=== PATIENT | male | born 1935 | race Caucasian/White ===

== ENCOUNTER → 2016-09-20 | Outpatient (CLI) | payer MEDICARE, BC | LOC: LABWHC1 13:41 | PROVIDERS: ATTEND Otolaryngology | DX: D44.0 Neoplasm of uncertain behavior of thyroid gland (principal); E04.1 Nontoxic single thyroid nodule | CPT/HCPCS: 36415; 84439; 84443 ==

== ENCOUNTER → 2017-03-16 | Outpatient (CLI) | payer MEDICARE, BC ==
--- NOTE | 2017-03-16 17:16 | US ---
EXAMINATION TYPE: US thyroid st tissue head/neck DATE OF EXAM: 03/16/2017 COMPARISON: NONE CLINICAL HISTORY: E04.1 Thyroid nodule. Patient stated had prior US at [facility]; marty or FNA x multiple nodules bilaterally. GLAND SIZE: Right Lobe: 5.7 x 2.7 x 2.7 cm Overall Parenchyma: heterogenous Left Lobe: 5.8 x 3.0 x 2.5 cm Overall Parenchyma: heterogeneous Isthmus Thickness: 0.3 cm NODULES RIGHT: # of nodules measured on right: 2 discreet nodules of multiple 1. 3.1 X 2.0 x 1.4 cm hypoechoic mixed nodule at the mid lateral pole with well-defined margins. T his nodule is wider than tall and shows intranodular vascularity. Prior size: no prior US here 2. 0.4 X 0.3 x 0.3 cm echogenic calcified nodule at the lower pole with poorly defined margins; inte rrupted peripheral calcification. This nodule is wide as is tall and shows no intranodular vasculari ty. LEFT: # of nodules measured on left: 2 discreet nodules of multiple 1. 0.7 X 0.5 x 0.5 cm hypoechoic cystic nodule at the upper pole with well-defined margins; present with microcalcification. This nodule is wide as is tall and shows no intranodular vascularity. 2. 3.0 x X 1.8 x 2.2 cm isoechoic solid nodule at the lower pole with well-defined margins. This n odule is taller than wide and shows intranodular vascularity. ( inferior border left thyroid was limitedly seen due to probe at clavicle) ISTHMUS: # of nodules measured in the isthmus: 0 Bilateral neck scanned, no evidence of lymphadenopathy. IMPRESSION: There is bilateral significant thyroid gland enlargement with multiple sonographic abnormalities. Thi s most likely relates to multinodular goiter. Comparison with an old exam would be helpful. There is no single dominant mass. I have a lower suspicion of malignancy since there are multiple findings and I think this could be followed conservatively with a repeat ultrasound in 6 months or one year.
== END | disposition home or self-care (01) ==
LOC: RADUSWWP 16:05
PROVIDERS: ATTEND Otolaryngology
DX: E04.9 Nontoxic goiter, unspecified (principal)
CPT/HCPCS: 76536

== ENCOUNTER → 2017-07-13 | Outpatient (CLI) | payer MEDICARE, BC ==
--- NOTE | 2017-07-13 19:55 | MR ---
EXAMINATION TYPE: MR lumbar spine wo/w con DATE OF EXAM: 07/13/2017 COMPARISON: 10/19/2016 HISTORY: LBP, lt sciatica, hx surgery 12 years ago TECHNIQUE: Multiplanar, multisequence images of the lumbar spine were acquired utilizing [address] gadolinium contrast. Again on localizer images there is enlargement of the prostate gland. Vertebral body heights are norm al alignment and vertebral body height. Heterogenous bone marrow signal is again seen diffusely. No s uspicious postcontrast enhancement is present. Multilevel intervertebral disc desiccation is noted. L1-L2: There is a broad-based disc bulge, facet arthropathy and ligamentum flavum buckling creating m oderate spinal canal stenosis and mild to moderate right neural foraminal narrowing and mild left geoff ral foraminal narrowing. This is similar to the prior. L2-L3: There is moderate spinal canal stenosis created by large left eccentric broad-based disc bulge , facet arthropathy and ligamentum flavum hypertrophy. This results in moderate left and mild right n eural foraminal narrowing. Findings are unchanged from the prior. L3-L4: There is a broad-based disc bulge, facet arthropathy, and ligamentum flavum buckling create mi ld spinal canal stenosis and moderate bilateral neural foraminal narrowing. Again findings are unchan ged from the prior. L4-L5: There is a focal annular tear of the central disc with a broad-based disc bulge. Bilateral ashley inectomy defects are seen at this level and spinous process resection. Scar enhancement is seen poste riorly although there is no epidural fibrosis as this appears to be external to the epidural space. A broad-based disc bulge creates moderate bilateral neural foraminal narrowing. No spinal canal stenos is. L5-S1: Broad-based disc bulge is seen in combination with facet arthropathy and ligamentum flavum buc edy creating mild bilateral neural neural foraminal narrowing, slightly increased from the prior. N o spinal canal stenosis. Again multiple T2 hyperintense and T1 hypointense rounded left renal lesions are seen the largest in the upper pole measuring up to 2.5 cm. These may represent renal cysts. Further evaluation with renal ultrasound could be performed. IMPRESSION: 1. Similar multilevel degenerative changes in comparison to the prior of 10/19/2016. There is only slig ht progression at L5-S1 with mild bilateral neural foraminal narrowing. Otherwise there is stability of the multilevel variable degrees neural foraminal stenosis as described above and mild spinal canal stenosis at L3-L4 and moderate spinal canal stenosis at L1-L3. 2. Multiple T2 hyperintense renal lesions may represent renal cysts and confirmation with renal ultra sound is recommended. 3. Minimally enhancing scar tissue at the laminectomy defect at L4-L5 without significant epidural fi brosis.
== END | disposition home or self-care (01) ==
LOC: RADMRIMAIN 14:25
PROVIDERS: ATTEND Family Medicine
DX: M48.061 Spinal stenosis, lumbar region without neurogenic claudication (principal); M99.73 Connective tissue and disc stenosis of intervertebral foramina of lumbar region; M47.27 Other spondylosis with radiculopathy, lumbosacral region; Z98.890 Other specified postprocedural states
CPT/HCPCS: 72158; A9581

== ENCOUNTER → 2017-09-27 | Outpatient (CLI) | payer MEDICARE, BC ==
--- NOTE | 2017-09-27 14:44 | US ---
EXAMINATION TYPE: US thyroid st tissue head/neck DATE OF EXAM: 09/27/2017 COMPARISON: 2017 CLINICAL HISTORY: E04.1 thyroid nodule. GLAND SIZE: Right Lobe: 5.2 x 2.7 x 2.6 cm Overall Parenchyma: heterogenous Left Lobe: 4.9 x 2.7 x 2.7 cm Overall Parenchyma: heterogeneous Isthmus Thickness: 0.3 cm NODULES RIGHT: # of nodules measured on right: 1. 3.0 X 1.8 x 2.3 cm mixed nodule at the mid pole with well-defined margins; . This nodule is wid er than tall and shows intranodular vascularity. Prior size: 3.1 x 2.0 x 1.4 cm 2. 1.2 X 0.7 x 0.6 cm mixed nodule at the lower pole with poorly defined margins; present with micro calcifications. This nodule is wide as tall and shows no intranodular vascularity. Prior size: 0.4 x 0.3 x 0.3 cm LEFT: # of nodules measured on left: 2 1. 1.2 X 0.7 x 0.7 cm mixed nodule at the upper pole with well-defined margins; present with microc alcifications. This nodule is round and shows no intranodular vascularity. Prior size: 0.7 x 0.5 x 0.5 cm 2. 2.6 X 2.3 x 2.1 cm mixed nodule at the lower pole with well-defined margins; . This nodule is wi josephine than tall and shows intranodular vascularity. Prior size: 3.0 x 1.8 x 2.2 cm ISTHMUS: # of nodules measured in the isthmus: 0 Bilateral neck scanned, no evidence of lymphadenopathy. IMPRESSION: 1. Enlarging left lobe thyroid nodule upper pole left lobe thyroid. 2. Enlarging right lobe thyroid nodule lower pole right lobe thyroid
== END | disposition home or self-care (01) ==
LOC: RADUSWWP 13:27
PROVIDERS: ATTEND Otolaryngology
DX: E04.2 Nontoxic multinodular goiter (principal)
CPT/HCPCS: 76536

== ENCOUNTER 2018-06-27 09:07 | Inpatient (IN) | payer MEDICARE, BC ==
[~2018-06-27 09:07] MED LIST: ACETAMINOPHEN TAB 500 MG TAB PO ONE; CLINDAMYCIN 900 MG in DEXTROSE 5% IN WATER 50 ML IVPB ONE; DEXAMETHASONE SOD PHOSPHATE 10 MG/ML 1 ML VIAL IV ONE; HYDROmorphone 1 MG/ML 1 ML SYRINGE IVP PRN; LIDOCAINE 1% 20 ML VIAL (10MG/ML) FOR IV START INTRADERMA PRN; MELOXICAM 7.5 MG TAB PO ONE; MIDAZOLAM 2 MG/2 ML VIAL IV PRN; ONDANSETRON 4 MG/2 ML VIAL IVP ONE; SCOPOLAMINE 1.5MG/72HR PATCH TRANSDERM ONE; TRANEXAMIC ACID 1,000 MG in SODIUM CHLORIDE 0.9% 50 ML IVPB ONE
[2018-06-27] MEDS ORDERED: ROPIVACAINE 246.25 MG, EPINEPHrine 0.5 MG, KETOROLAC 30 MG, cloNIDine HCL/PF 80 MCG, WA... MISCELLANE ONE ×5 (09:23)
[2018-06-27] MEDS ORDERED: VANCOMYCIN IV PER PHARMACY 1 EACH MISC MISCELLANE PRN (09:24)
[2018-06-27] MEDS ORDERED: VANCOMYCIN 1,250 MG in SODIUM CHLORIDE 0.9% 250 ML IVPB ONE (09:45)
[2018-06-27] MEDS: LACTATED RINGERS 1,000 ML IV SCH ×2 (10:09→14:43)
[2018-06-27] MEDS ORDERED: NALOXONE 0.4 MG/ML 1 ML VIAL IV PRN ×2 (11:29→14:43)
[2018-06-27] MEDS ORDERED: ACETAMINOPHEN TAB 325 MG TAB PO PRN (11:29)
[2018-06-27] MEDS ORDERED: SODIUM CHLORIDE 0.9% IVPB ONE (11:29)
[2018-06-27] MEDS ORDERED: traMADol 50 MG TAB PO PRN (11:29)
[2018-06-27] MEDS ORDERED: NA PHOS,M-B/NA PHOS,DI-BA 133 ML ENEMA RECTAL PRN (11:29)
[2018-06-27] MEDS ORDERED: VANCOMYCIN IVPB ONE (11:29)
[2018-06-27] MEDS ORDERED: hydrOXYzine PAMOATE 25 MG CAP PO PRN (11:29)
[2018-06-27] MEDS ORDERED: MAGNESIUM HYDROXIDE 2,400 MG/10 ML CUP PO PRN (11:29)
[2018-06-27] MEDS ORDERED: DIAZEPAM 5 MG TAB PO PRN (11:29)
[2018-06-27] MEDS ORDERED: HYDROcodone/APAP 7.5-325MG 1 EACH TAB PO PRN (11:29)
[2018-06-27] MEDS ORDERED: HYDROmorphone 1 MG/ML 1 ML SYRINGE IVP PRN ×4 (11:29→14:43)
[2018-06-27] MEDS ORDERED: TEMAZEPAM 15 MG CAP PO PRN (11:29)
[2018-06-27] MEDS ORDERED: HYDROcodone/APAP 5-325MG 1 EACH TAB PO PRN (11:29)
[2018-06-27] MEDS ORDERED: BISACODYL 10 MG SUPP RECTAL PRN (11:29)
[2018-06-27] MEDS ORDERED: PROPOFOL 10 MG/ML 20 ML VIAL IV ONE (11:59)
[2018-06-27] MEDS ORDERED: MIDAZOLAM 2 MG/2 ML VIAL ONE (11:59)
[2018-06-27] MEDS ORDERED: TRANEXAMIC ACID 1,000 MG/10 ML VIAL ONE (11:59)
[2018-06-27] MEDS ORDERED: MORPHINE SULFATE (PF) 0.3 MG/0.3 ML SYR ONE (11:59)
[2018-06-27] MEDS ORDERED: SODIUM CHLORIDE 0.9% 100 ML BAG ONE (11:59)
[2018-06-27] MEDS ORDERED: fentaNYL (PF) 50 MCG/ML 2 ML AMP ONE (11:59)
[2018-06-27] MEDS ORDERED: SODIUM CHLORIDE 0.9% 50 ML with ceFAZolin 2,000 MG IV ONE ×2 (12:15)
--- NOTE | 2018-06-27 14:17 | XR ---
Limited left knee HISTORY: Postop knee arthroplasty 2 views of the left knee Patient is status post left knee arthroplasty. There is anatomic alignment. Lucency in the soft tissu es compatible with postop change. IMPRESSION: Orthopedic follow-up.
[2018-06-27] MEDS ORDERED: diphenhydrAMINE 50 MG/ML 1 ML VIAL IVP PRN (14:43)
[2018-06-27] MEDS ORDERED: NALBUPHINE 10 MG/ML VIAL (10ML MDV) IV PRN (14:43)
[2018-06-27 15:31] VITALS: BMI 25.1
[2018-06-27] MEDS ORDERED: ceFAZolin 2,000 MG in DEXTROSE/WATER 1 50ML.BAG IVPB SCH (16:00)
[2018-06-27] MEDS: ONDANSETRON 4 MG/2 ML VIAL IVP PRN (16:32)
[2018-06-27] MEDS: METOCLOPRAMIDE 5 MG/ML 2 ML VIAL IVP PRN (18:16)
[2018-06-27] MEDS: PANTOPRAZOLE 40 MG/10 ML VIAL IVP SCH (18:18)
[2018-06-27 19:56] LABS: Basophils % (A) 0 %; Eosinophils % (A) 0 %; HCT 41.4 % (39.0-53.0); HGB 13.9 gm/dL (13.0-17.5); Lymphocytes # (A) 0.9 k/uL (1.0-4.8); Lymphocytes % (A) 7 %; MCH 30.2 pg (25.0-35.0); MCHC 33.5 g/dL (31.0-37.0); MCV 90.2 fL (80.0-100.0); Mean Platelet Volume 6.7; Monocytes # (A) 0.3 k/uL (0-1.0); Monocytes % (A) 2 %; Neutrophils # (A) 12.8 k/uL (1.3-7.7); Neutrophils % (A) 91 %; Platelet Count 198 k/uL (150-450); RBC 4.59 m/uL (4.30-5.90); RDW 13.1 % (11.5-15.5); WBC 14.1 k/uL (3.8-10.6)
[2018-06-27 20:09] LABS: Anion Gap 13 mmol/L; Blood Urea Nitrogen 28 mg/dL (9-20); Calcium 9.5 mg/dL (8.4-10.2); Carbon Dioxide 22 mmol/L (22-30); Chloride 103 mmol/L (98-107); Glucose 172 mg/dL (74-99); Potassium 4.2 mmol/L (3.5-5.1); Sodium 138 mmol/L (137-145)
--- NOTE | 2018-06-27 21:00 | CONS ---
CONSULTATION DATE OF SERVICE: 06/27/2018 REASON FOR CONSULTATION: Advice regarding CAD and other multiple medical issues, requested by Dr. Olivera. HISTORY OF PRESENT ILLNESS: This 83-year-old gentleman with a past medical history of CAD, history of DJD, history of prostate disorder, history of mitral valve repair, history of CABG and stent, being followed by Dr. Anand Fortune in the outpatient setting, was admitted after left total knee arthroplasty. There is no history of any fever, rigor or chills. No history of headache, loss of consciousness, seizures. No chest pain, palpitations at this time. The patient's reports that he usually gets constipated with pain medications, and usually Senna works best. PAST MEDICAL HISTORY: 1. CAD. 2. DJD. 3. History of prostate disorder. 4. History of mitral valve repair. 5. History of CAD, CABG, stent. HOME MEDICATIONS: 1. Benadryl 25 mg at bedtime. 2. Ubidecarenone (Coenzyme-Q) 100 mg p.o. daily. 3. Turmeric 500 mg p.o. b.i.d. 4. Sea kelp 325 mg p.o. daily. 5. Cassatt oil 600 mg b.i.d. 6. Multivitamins 1 p.o. daily. 7. Lopressor 25 mg p.o. b.i.d. 8. Doxazosin 2 mg at bedtime. 9. Vitamin D3 5000 daily. 10.Aspirin 81 mg daily. ALLERGIES: CEFTIN. FAMILY HISTORY: No history of heart disease or strokes in the family. SOCIAL HISTORY: No history of smoking. No history of alcohol intake. REVIEW OF SYSTEMS: ENT: No diminished hearing. No diminished vision. CARDIOVASCULAR SYSTEM: No angina, palpitations. RESPIRATORY SYSTEM: As mentioned earlier. GI: No nausea, vomiting. : No dysuria or retention. NERVOUS SYSTEM: No numbness, weakness. ALLERGY/IMMUNOLOGY: No asthma, hayfever. MUSCULOSKELETAL: As mentioned earlier. HEMATOLOGY/ONCOLOGY: No history of anemia. ENDOCRINE: No history of diabetes, hypothyroidism. CONSTITUTIONAL: As mentioned earlier. DERMATOLOGY: Negative. RHEUMATOLOGY: Negative. PSYCHIATRY: As mentioned earlier. PHYSICAL EXAMINATION: Patient alert and oriented x3. Pulse 71, blood pressure 102/55, respiratory rate 14, temperature normal, pulse ox 98% on room air. HEENT: Conjunctivae normal. Oral mucosa moist. NECK: No jugular venous distention. No carotid bruit. No lymph node enlargement. CARDIOVASCULAR SYSTEM: S1, S2 muffled. RESPIRATORY SYSTEM: Breath sounds diminished at the bases. No rhonchi. No crackles. ABDOMEN: Soft. LEGS: Status post left knee arthroplasty. NERVOUS SYSTEM: Higher functions as mentioned earlier. Moves all 4 limbs. No focal motor or sensory deficit. LYMPHATICS: No lymph node palpable in neck, axillae or groin. SKIN: No ulcer, rash, bleeding. LABS: CBC, CMP within normal limits. PSA is 4.54. ASSESSMENT: 1. Status post left total knee joint arthroplasty. 2. History of coronary artery disease. 3. History of degenerative joint disease. 4. History of prostate disorder. 5. History of hypothyroidism. 6. History of mitral valve repair. 7. History of coronary artery disease, coronary artery bypass grafting, stent. RECOMMENDATIONS AND DISCUSSION: In this 83-year-old gentleman who presented with multiple complex medical issues, we will monitor the patient closely, continue the current medications. Resume the home medication, including Ecotrin. Otherwise, at this time I would also recommend adding Colace to the regimen. DVT prophylaxis. Incentive spirometry. We will follow the patient closely with you. The patient may be asked to follow up with Dr. Anand Fortune closely after discharge. Thank you, Dr. Olivera, for letting us participate in the care of this patient. MMTANGELAL / IJN: [id number] /
--- NOTE | 2018-06-27 22:39 | OP ---
OPERATIVE REPORT DATE OF PROCEDURE: 06/27/2018 PREOPERATIVE DIAGNOSIS: Left knee osteoarthrosis. POSTOPERATIVE DIAGNOSIS: Left knee osteoarthrosis. OPERATION: Left total knee arthroplasty. SURGEON: Vinh Olivera MD. TRAVEL OCCUPATIONAL THERAPIST: Harsha CHAUDHARI. ANESTHESIA: Spinal with sedation. ESTIMATED BLOOD LOSS: 100 mL. TOURNIQUET TIME: 49 minutes at 250 mmHg. COMPLICATIONS: None apparent. DRAINS: None. DISPOSITION: Post-Anesthesia Care Unit. INDICATIONS: Kan is a very pleasant 83-year-old male with longstanding left knee pain. His history and physical examination are consistent with advanced left knee osteoarthrosis. He has been through significant nonoperative management up to this point. Further treatment options were discussed. He decided to go forward with left total knee arthroplasty. The risks of the procedure were discussed with him in detail. These risks include but are not limited to risk of infection, nerve damage, bleeding, pain, and a small risk of deep vein thrombosis which could lead to fatal pulmonary embolism. There is also risk of loosening of the implant which could require revision operation. The patient understands these risks. All of his questions were answered to his satisfaction and appropriate informed consent was obtained. DESCRIPTION OF THE PROCEDURE: The patient was identified in the preoperative holding area. Surgical site was marked by both the patient and myself. He was given 2 grams of Ancef IV for prophylactic purposes. He was then transferred to the operative suite. He was placed supine on the operating room table. Spinal anesthetic was then administered and dosed per the anesthesia department without apparent complications. Examination under anesthesia was then performed. The patient was 2-3 degrees shy of full extension. He had 100 degrees of flexion, and the medial collateral ligament, lateral collateral ligament and posterior cruciate ligaments were stable. Tourniquet was then placed high on the left upper thigh, well padded in preparation for surgery. The patient's left lower extremity was then prepped and draped in the usual sterile fashion. A standard surgical pause was undertaken to ensure that we were operating on the correct site and that appropriate preoperative antibiotics had been given. All staff in the room were in agreement and we proceeded. The outlines of the patella were marked with a surgical pen. A planned 10 to 12 cm vertical incision centered over the patella was marked with a surgical pen. Leg was then exsanguinated with an Esmarch dressing. The knee was then flexed and the tourniquet was inflated to 250 mmHg. The total tourniquet time for the procedure was 49 minutes. Incision was then made with a 10 blade scalpel. Dissection was carried down sharply to the overlying fascia. Great care was taken to minimize the skin flaps. The knee was then exposed using a standard medial parapatellar approach. A small cuff of quadriceps tendon was then left for suturing. He was in a bit of varus preoperatively. A standard medial release was then made. The superficial medial collateral ligament was dissected off the bone around to the posterior aspect of the proximal tibia. The medial meniscus was then excised as well. The lateral meniscus was also released anteriorly. The leg was externally rotated. The patella was everted. The knee was flexed. The retractors were then placed to protect the collateral ligaments. I then proceeded to remove the infrapatellar fat pad. This was excised sharply tangentially with the fibers of the patellar tendon. I then proceeded to remove peripheral osteophytes. This was done with a rongeur. I then proceed with the distal femoral resection. He did have near-full extension. The planned 9 mm resection was then done. The femoral canal was then entered in the midline of the femur approximately 10 mm anterior to the origin of the posterior cruciate ligament. The vivek was then advanced down the center of the femur and placed intramedullary. Based on preoperative radiographs, the angle between the anatomic and mechanical axis of the femur was approximately 4-5 degrees. The valgus angle of the distal femoral cutting guide was then set at 4 degrees for the left knee. The distal femoral cutting guide was then advanced over the intramedullary vivek. This was seated firmly against the femur. I then, as mentioned, planned to take 9 mm off the distal femur. Cutting block was then secured onto the femur with pins. The jig was removed. The distal femoral cut was made through the slot of the block. The pins were then removed and the distal femoral cutting block was removed. The accuracy of the distal femoral cuts was checked with 2 flat bars. I then proceeded with femoral sizing. The posterior referencing sizing guide was held firmly against the resected distal surface of the femur. The posterior condyles were resting on the posterior plane of the guide. The sizing stylus was then placed onto the anterior femur. This size was measured as a size 8. I then assessed for femoral rotation. Three degrees of external rotation was placed onto the jig. These holes were then marked. I then confirmed the rotation by 3 separate methods. This was done using the epicondylar axis as well as [place] line and posterior referencing. It was deemed that the external rotation was proper. I then went forward with placing the femoral cutting block. This was placed over the previously placed pin holes. The Tim wing was then placed onto the anterior slots to ensure that we would not notch the anterior femur with the anterior femoral cut. I then proceed with the anterior femoral cut. This was flush with the anterior cortex of the femur. Posterior cuts were then made followed by the anterior chamfer cut and then the posterior chamfer cut. The cutting block was then removed. Throughout the resection, the collateral ligaments were protected with retractors. I then placed a trial size 8 femur. It fit very nice medial-lateral and fit flush with the distal end of the femur. The drill holes were then made. I then proceeded with the tibial cut. I planned for a cruciate-retaining knee. The guide was placed and set for varus, valgus and for slope. The height was set for approximate 2 mm resection from the medial tibial plateau, which was the lower side. I was happy with the alignment and the amount of resection. The cutting block was then pinned to the proximal tibia. The alignment vivek was removed and the proximal tibia was resected with a reciprocating saw. Again this was done with retractors protecting the collateral ligaments as well as the posterior cruciate ligament. I then proceeded to evaluate the flexion and extension gaps. A 10 mm block was then placed. The flexion and extension gaps were equal. I then proceeded with resection of the posterior osteophytes. There were very minimal posterior osteophytes. This was done using a curved osteotome. This resected the posterior osteophytes, and posterior capsule stripping was also done off the posterior aspect of the femur at this time. The osteophytes were removed. I then proceeded with resection of patella. The thickness of the patella was measured using the caliper. The thickness was approximately 25 mm. The thickness of the anticipated patellar dome was then taken into account. The resection was then performed and confirmed to be equal in 4 quadrants using a caliper. Approximately 14 mm of bone remained after the resection. A 32 x 8.5 mm standard patellar trial was then placed. The holes were drilled and the trial was then placed. I then proceeded with sizing the tibial plate. A size E tibial plate fit very nicely. I then placed the trial femur, the tibial tray and the patellar button. A 10 mm trial tibial insert was also placed. The components fit very nicely. He had full extension and flexion. The flexion and extension gaps were equal and stable to both varus and valgus stress. The patella tracked appropriately. The tibial tray rotation was then marked with a Bovie. This was externally rotated properly. I then proceeded with tibial preparation. I first drilled the femoral holes and removed the femoral component. The tibial tray was then set for proper external rotation as well as mediolateral placement onto the tibia. It was then pinned into place. I then proceeded with punching the keel. I then decided to proceed with cementing of all of our components. The knee was thoroughly irrigated with sterile saline solution via pulse lavage. The lateral geniculate artery was identified and cauterized. All blood was removed from the bone of the tibia, femur and patella with pulse lavage. I then proceeded with cementing. Two packs of antibiotic bone cement were prepared on the back table by the surgical garment assembly supervisor. I then proceeded with cementing of the tibia first. The cement was impacted into the keel as well as deeply seated into the bone. A second coat of cement was then placed. The tibia was then impacted into place. Excess cement was removed with [place]'s and Joker's. I then proceeded with cementing of the femoral component. The femoral component was also cemented using standard technique. Excess cement was removed. A 10 mm trial insert was then placed into the knee. It was brought into full extension with a constant axial load placed until the cement had hardened. The patellar component was then cemented. This was held firmly with a compressive device until the cement had dried. When the cement had dried, the knee was taken out of extension. All excess cement was removed from around the prosthesis. I then trialed the knee with a 10 mm insert. The flexion and extension gaps were appropriate. The knee was stable. It came into full extension. I decided to go forward with the 10 mm cross-linked cruciate-retaining tibial insert. Polyethylene was then placed onto the tibial tray and locked into place. The knee was then reduced. The knee was again further irrigated with sterile saline solution with antibiotic added. The tourniquet was then deflated. The total tourniquet time for the procedure was 49 minutes at 250 mmHg. Final components were Andres Persona size 8 cruciate-retaining femoral component, a size E tibial tray, a 10 mm medial-congruent cruciate-retaining polyethylene insert and a 32 x 8.5 mm patella. I then proceeded with closure. Again the knee was thoroughly irrigated. The quadriceps tendon and the medial retinaculum were reapproximated with #2 Ethibond suture. The extensor mechanism was then closed with a running #2 Quill suture. Subcutaneous tissues were closed with 2-0 Vicryl interrupted suture. The skin was closed with a running 3-0 Quill suture. Dermabond was applied to the incision. Sterile compressive dressing was then applied. All sponge and needle counts were deemed correct prior to closure. The patient tolerated the procedure without apparent complication. He was transferred to the recovery room in stable condition. MMODL / IJN: [id number] /
[2018-06-27] MEDS: ceFAZolin IN SWFI 2 GM/20 ML SYRINGE IVP SCH (22:59)
[2018-06-28] MEDS: DOXAZOSIN 2 MG TAB PO SCH ×2 (00:06→07:37)
[2018-06-28] MEDS: SENNOSIDES-DOCUSATE SODIUM 1 EACH TAB PO SCH ×2 (00:06→20:48)
[2018-06-28] MEDS: ASPIRIN 325 MG TAB PO SCH ×3 (00:07→20:48)
[2018-06-28] MEDS: DOCUSATE 100 MG CAP PO SCH ×3 (00:07→20:48)
[2018-06-28] MEDS: PANTOPRAZOLE 40 MG/10 ML VIAL IVP SCH ×3 (00:07→20:48)
[2018-06-28] MEDS: METOPROLOL TARTRATE 25 MG TAB PO SCH ×3 (00:07→20:48)
[2018-06-28] MEDS: LACTATED RINGERS 1,000 ML IV SCH ×4 (00:09→17:02)
[2018-06-28] MEDS: METOCLOPRAMIDE 5 MG/ML 2 ML VIAL IVP PRN (01:43)
[2018-06-28] MEDS: ceFAZolin IN SWFI 2 GM/20 ML SYRINGE IVP SCH ×3 (05:09→20:48)
--- NOTE | 2018-06-28 07:24 | P.PN ---
Progress Note - Text Progress Note Date: 06/28/18 83-year-old male status post total knee arthroplasty postop day #1 with Duramorph spinal. Patient has complains of mild nausea with no vomiting. VAS is a 0 out of 10 in severity. Patient is put minimal weight on operative knee. Tolerating diet.
[2018-06-28] MEDS: CHOLECALCIFEROL 1,000 UNIT TAB PO SCH (07:38)
[2018-06-28] MEDS: ONDANSETRON 4 MG/2 ML VIAL IVP PRN (07:41)
[2018-06-28 08:23] LABS: Basophils % (A) 0 %; Eosinophils % (A) 0 %; HGB 11.5 gm/dL (13.0-17.5); Lymphocytes # (A) 0.9 k/uL (1.0-4.8); Lymphocytes % (A) 8 %; MCH 30.1 pg (25.0-35.0); MCHC 33.8 g/dL (31.0-37.0); MCV 89.1 fL (80.0-100.0); Monocytes # (A) 0.8 k/uL (0-1.0); Monocytes % (A) 7 %; Neutrophils % (A) 83 %; Platelet Count 180 k/uL (150-450); RBC 3.81 m/uL (4.30-5.90); RDW 13.2 % (11.5-15.5); WBC 10.8 k/uL (3.8-10.6)
[2018-06-28] MEDS ORDERED: ASPIRIN 81 MG PO SCH (09:00)
[2018-06-28] MEDS ORDERED: MULTIVITAMIN PO SCH (09:00)
[2018-06-28] MEDS ORDERED: NON-FORMULARY DRUG (Ubidecarenone [Co Q-10] 100 MG) PO SCH (09:00)
[2018-06-28] MEDS ORDERED: TAMSULOSIN 0.4 MG CAP.ER.24H PO STA (09:06)
--- NOTE | 2018-06-28 09:36 | P.DS ---
Providers Date of admission: 06/27/18 09:07 Expected date of discharge: 06/28/18 Attending physician: Vinh Olivera Consults: 06/27/18 11:29 Consult Physician Routine Consulting Provider: Anand Fortune Consult Reason/Comments: post op medical management Do you want consulting provider notified?: Yes Primary care physician: Anand Fortune - Discharge Diagnosis(es) (1) Osteoarthritis of left knee Patient was admitted to the OR on 06/27/2018 to undergo a left total knee arthroplasty. He had failed conservative measures as an outpatient and desired to proceed with elective surgery after given informed consent. He underwent the above procedure which he tolerated well without complication. Postoperative hospital course has remained without complication. On day of discharge he is afebrile, vital signs stable, labs within acceptable ranges, tolerating by mouth meds and diet, voiding without difficulty, positive flatus, denies abdominal pain or calf pain, pain is controlled on oral pain medication and has no new complaints. Wound is benign, neurovascular status is intact, calf is soft and nontender, abdomen soft and nontender. Review of systems is negative for numbness, tingling, fever, chills, chest pain, shortness breath, nausea, vomiting, dizziness, headaches, slurred speech or other. Current Visit: Yes Status: Acute Priority: Medium Procedures: Left total knee arthroplasty Patient Condition at Discharge: Good Plan - Discharge Summary Discharge Rx Participant: Yes New Discharge Prescriptions: New Aspirin 325 mg PO BID #60 tab Docusate [Colace] 100 mg PO BID #60 capsule HYDROcodone/APAP 7.5-325MG [[place] 7.5-325] 1 - 2 each PO Q6HR PRN #56 tab PRN Reason: Pain No Action Turmeric Root Extract [Turmeric] 500 mg PO BID diphenhydrAMINE [Benadryl] 25 mg PO HS Ubidecarenone [Co Q-10] 100 mg PO DAILY Cholecalciferol [Vitamin D3] 5,000 unit PO DAILY Metoprolol Tartrate [Lopressor] 25 mg PO BID Doxazosin Mesylate 2 mg PO HS Aspirin [Adult Low Dose Aspirin EC] 81 mg PO DAILY [place] Oil 1200 600 mg PO BID Multivitamin Packet 1 applic PO DAILY Sea Kelp 325 Mcg 325 mcg PO DAILY Discharge Medication List Aspirin [Adult Low Dose Aspirin EC] 81 mg PO DAILY 06/24/18 [History] Cholecalciferol [Vitamin D3] 5,000 unit PO DAILY 06/24/18 [History] Doxazosin Mesylate 2 mg PO HS 06/24/18 [History] Metoprolol Tartrate [Lopressor] 25 mg PO BID 06/24/18 [History] Multivitamin Packet 1 applic PO DAILY 06/24/18 [History] [place] Oil 1200 600 mg PO BID 06/24/18 [History] Sea Kelp 325 Mcg 325 mcg PO DAILY 06/24/18 [History] Turmeric Root Extract [Turmeric] 500 mg PO BID 06/24/18 [History] Ubidecarenone [Co Q-10] 100 mg PO DAILY 06/24/18 [History] diphenhydrAMINE [Benadryl] 25 mg PO HS 06/24/18 [History] Aspirin 325 mg PO BID #60 tab 06/28/18 [Rx] Docusate [Colace] 100 mg PO BID #60 capsule 06/28/18 [Rx] HYDROcodone/APAP 7.5-325MG [[place] 7.5-325] 1 - 2 each PO Q6HR PRN #56 tab [Rx] Follow up Appointment(s)/Referral(s): Anand Fortune MD [Primary Care Provider] - 1 Week Vinh Olivera MD [STAFF PHYSICIAN] - 10 Days Activity/Diet/Wound Care/Special Instructions: Keep wound clean and dry Take meds as directed Follow-up with Dr. Olivera in office Weight bear as tolerated May shower in 3 days if no bleeding Discharge Disposition: HOME WITH HOME HEALTH SERVICES
[2018-06-28] MEDS: MULTIVITAMINS, THERA 1 EACH TAB PO SCH (12:49)
[2018-06-28] MEDS: HYDROcodone/APAP 5-325MG 1 EACH TAB PO PRN (19:11)
--- NOTE | 2018-06-28 19:46 | PN ---
PROGRESS NOTE DATE OF SERVICE: 06/28/2018 This 83-year-old gentleman who was admitted after surgery is improving significantly. No chest pain. No palpitations. No fever. EXAM: Alert and oriented x3. The pulse is 93, blood pressure 101/61, respirations 18, temperature 97.8, pulse ox 93% on room air. HEENT: Conjunctivae normal. NECK: No jugular venous distention. CARDIOVASCULAR: S1, S2 muffled. RESPIRATORY: Breath sounds diminished in the bases. No rhonchi. No crackles. Abdomen is soft, nontender. Legs status post surgery. Central nervous system: No focal deficits. LAB STUDIES: WBC 10.8, hemoglobin 11.5. ASSESSMENT: 1. Status post left total knee arthroplasty. 2. History of coronary artery disease. 3. History of degenerative joint disease. 4. History of prostate disorder. 5. History of hypothyroidism. 6. History of mitral valve repair. 7. History of coronary artery disease, coronary artery bypass grafting, stent. RECOMMENDATIONS AND DISCUSSION: Recommend to continue current medications, management and symptomatic treatment. Repeat labs. P.o. fluids. DVT prophylaxis. Further recommendations to follow. MMODL / IJN: [id number] /
[2018-06-29] MEDS: HYDROcodone/APAP 5-325MG 1 EACH TAB PO PRN ×3 (01:25→15:11)
[2018-06-29] MEDS: LACTATED RINGERS 1,000 ML IV SCH ×3 (02:10→13:22)
[2018-06-29 07:50] VITALS: BP 116/70; PULSE 75; RESP 14; TEMP 98
[2018-06-29] MEDS: CHOLECALCIFEROL 1,000 UNIT TAB PO SCH (08:15)
[2018-06-29] MEDS: METOPROLOL TARTRATE 25 MG TAB PO SCH (08:16)
[2018-06-29] MEDS: ASPIRIN 325 MG TAB PO SCH (08:16)
[2018-06-29] MEDS: DOCUSATE 100 MG CAP PO SCH (08:16)
[2018-06-29] MEDS: PANTOPRAZOLE 40 MG/10 ML VIAL IVP SCH (08:16)
--- NOTE | 2018-06-29 10:07 | P.PN ---
Subjective Progress Note Date: 06/29/18 This is an 83-year-old male who is status post left total knee arthroplasty. This is postoperative day #2. Patient states that he has not been able to urinate. Patient has a Vázquez catheter placed. Patient states that his left knee pain is well controlled and he has been up and walking. Patient denies any fever/chills, numbness, weakness, tingling, abdominal pain, shortness of breath or chest pain. Objective - Vital Signs Vital signs: Vital Signs Temp 98.0 F 06/29/18 07:00 Pulse 75 06/29/18 07:00 Resp 14 06/29/18 07:00 BP 116/70 06/29/18 07:00 Pulse Ox 93 L 06/29/18 07:00 Intake & Output 06/28/18 06/29/18 06/29/18 18:59 06:59 18:59 Intake Total 794 780 Output Total 400 2100 Balance 394 -1320 Intake: Oral 794 780 Output: Urine 400 2100 Straight 2100 Other: Voiding Method Indwelling Catheter Indwelling Catheter # Voids 1 - Exam Vital signs are stable. Patient is in no acute distress and is alert and oriented 3. Calf is soft and nontender to palpation. Dressing is clean, dry, and intact. Patient has full foot and ankle motion without pain or difficulty. Neurovascular status and circulatory status are intact. - Labs CBC & Chem 7: 06/28/18 07:11 06/27/18 19:35 Assessment and Plan (1) Osteoarthritis of left knee Current Visit: Yes Status: Acute Priority: Medium Code(s): M17.12 - UNILATERAL PRIMARY OSTEOARTHRITIS, LEFT KNEE SNOMED Code(s): 817708041990962 (2) Status post total left knee replacement Current Visit: Yes Status: Acute Code(s): Z96.652 - PRESENCE OF LEFT ARTIFICIAL KNEE JOINT SNOMED Code(s): 1588876146338 Plan: #1 Continue with routine postoperative care and daily dressing changes. #2 Anticoagulation with aspirin. #3 Physical therapy today. #4 Appreciate input from medicine and urology. #5 Anticipate discharge home when cleared medically.
[2018-06-29] MEDS: MULTIVITAMINS, THERA 1 EACH TAB PO SCH (11:36)
--- NOTE | 2018-06-29 15:00 | P.GSCN ---
History of Present Illness Consult date: 06/29/18 Reason for Consult: Urinary retention Requesting physician: Vinh Olivera History of present illness: The patient is an 83-year-old white male known to Dr. Wilde, though he has not been seen by Dr. Wilde for approximately 5 years. He has a history of BPH, and has had an elevated PSA level in the past. He developed urinary retention following back surgery. He underwent a left total knee arthroplasty on 2017. He again developed postoperative urinary retention. He was straight catheterized twice, and subsequently underwent Vázquez catheter insertion yesterday for persistent urinary retention. Review of Systems - Constitutional Denies fever - Respiratory Denies dyspnea - Genitourinary Reports urinary hesitancy Past Medical History Past Medical History: Coronary Artery Disease (CAD), Hearing Disorder / Deafness , Osteoarthritis (OA), Prostate Disorder, Thyroid Disorder Additional Past Medical History / Comment(s): MITRAL VALVE REPAIR AGE 67. LT KNEE AND SHOULDER PROBLEMS/PAIN. 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 SPINAL STENOSIS. BPH. History of Any Multi-Drug Resistant Organisms: None Reported Past Surgical History: Back Surgery, Coronary Bypass/CABG, Heart Catheterization With Stent Additional Past Surgical History / Comment(s): CABG X1 VESSEL, MITRAL VALVE REPAIR. PTCA STENTS X2. RT ROTATOR CUFF REPAIR. ARTHROSCOPIC CEM KNEES. BACK SURG X2. Past Anesthesia/Blood Transfusion Reactions: No Reported Reaction Date of Last Stent Placement:: 2000 Past Psychological History: No Psychological Hx Reported Smoking Status: Never smoker Past Alcohol Use History: Occasional Past Drug Use History: None Reported - Past Family History Mother Family Medical History: No Reported History Medications and Allergies Home Medications Medication Instructions Recorded Confirmed Type Aspirin [Adult Low Dose Aspirin EC] 81 mg PO DAILY 06/24/18 06/27/18 History Cholecalciferol [Vitamin D3] 5,000 unit PO DAILY 06/24/18 06/27/18 History Doxazosin Mesylate 2 mg PO HS 06/24/18 06/27/18 History Metoprolol Tartrate [Lopressor] 25 mg PO BID 06/24/18 06/27/18 History Multivitamin Packet 1 applic PO DAILY 06/24/18 06/27/18 History [place] Oil 1200 600 mg PO BID 06/24/18 06/27/18 History Sea Kelp 325 Mcg 325 mcg PO DAILY 06/24/18 06/27/18 History Turmeric Root Extract [Turmeric] 500 mg PO BID 06/24/18 06/27/18 History Ubidecarenone [Co Q-10] 100 mg PO DAILY 06/24/18 06/27/18 History diphenhydrAMINE [Benadryl] 25 mg PO HS 06/24/18 06/27/18 History Aspirin 325 mg PO BID #60 tab 06/28/18 Rx Docusate [Colace] 100 mg PO BID #60 capsule 06/28/18 Rx HYDROcodone/APAP 7.5-325MG [[place] 1 - 2 each PO Q6HR PRN #56 tab 06/28/18 Rx 7.5-325] Allergies Allergy/AdvReac Type Severity Reaction Status Date / Time cefuroxime [From Ceftin] Allergy Severe Diarrhea, Verified 06/27/18 15:22 DEHYDRATION Surgical - Exam Vital Signs Temp Pulse Resp BP Pulse Ox 97.8 F 65 16 152/75 100 06/27/18 10:10 06/27/18 10:10 06/27/18 10:10 06/27/18 10:10 06/27/18 10:10 - General well developed, well nourished, no distress - Respiratory normal respiratory effort - Abdomen Abdomen: soft, non tender, no guarding, no rigid, no rebound - Psychiatric oriented to time, oriented to person, oriented to place, speech is normal, memory intact Results - Labs 06/28/18 07:11 06/27/18 19:35 Assessment and Plan (1) Postoperative urinary retention Current Visit: Yes Status: Acute Code(s): N99.89 - OTH POSTPROCEDURAL COMPLICATIONS AND DISORDERS OF SYS; R33.8 - OTHER RETENTION OF URINE SNOMED Code(s): 355810631 Plan: I had a lengthy discussion with the patient and his , who is a nurse. I explained to both of them that this is not expected postoperatively but also not particularly unusual, given his prior history of urinary retention. I discussed with them the fact that a. A Vázquez catheter drainage is advisable to allow the bladder to recompensate. In view of this, he will be discharged home with the catheter. He did not previously take tamsulosin, but a prescription will be given for him to take tamsulosin or doxazosin upon discharge. He will follow up with Dr. Wilde on 07/02/2018. He has been advised to remove his Vázquez catheter 6-8 hours prior to that appointment for a voiding trial. Please notify me if I can be of any further assistance. Time with Patient: Greater than 30
--- NOTE | 2018-06-29 18:59 | PN ---
PROGRESS NOTE DATE OF SERVICE: 06/29/2018 I am covering for Dr. Anand Fortune. This 83-year-old gentleman admitted with and issues with urinary obstruction. Patient had Vázquez catheter. Urology is following the patient closely. No chest pain. No palpitations. No fever. EXAM: Alert and oriented x3. Pulse is 75. Blood pressure 116/70, respiration 14, temperature 98 degrees, pulse ox 93% on room air. HEENT: Conjunctivae normal. Neck is no jugular venous distention. CARDIOVASCULAR: S1, S2 muffled. RESPIRATORY: Breath sounds diminished in the bases. No rhonchi. No crackles. ABDOMEN is soft, nontender. No mass palpable. Legs: No edema. No swelling. Status post knee arthroplasty. Vázquez catheter in situ. Nervous system: No focal deficits. LAB STUDIES: WBC 10.8, hemoglobin 11.5. ASSESSMENT: 1. Status post left total knee arthroplasty. 2. History of coronary artery disease. 3. History of degenerative joint disease. 4. Urinary retention, possibly benign prostatic hypertrophy. 5. Hypothyroidism. 6. History of mitral repair. 7. History of coronary artery disease, coronary artery bypass grafting, stent. RECOMMENDATIONS AND DISCUSSION: Recommend to continue current medications, management and symptomatic treatment. Otherwise, I recommend Flomax and closely follow with Urology. Otherwise, resume the home medications. Follow up closely with Dr. Anand Fortune in 1-2 weeks or p.r.n. Otherwise, resume the home medications. Further recommendations to follow. MMODL / IJN: [id number] / MTDD
== END 2018-06-29 15:30 | disposition home health service (06) | DRG 470 ==
LOC: 2ORMAIN 09:07 → 4SSUR 13:54
PROVIDERS: ADMIT Orthopaedic Surgery Sports Medicine; ATTEND Orthopaedic Surgery Sports Medicine
PROC: 0SRD0J9 Replacement of Left Knee Joint with Synthetic Substitute, Cemented, Open Approach (ICD-10-PCS; principal; 2018-06-27 11:00)
DX: M17.12 Unilateral primary osteoarthritis, left knee (principal); I25.10 Atherosclerotic heart disease of native coronary artery without angina pectoris; E03.9 Hypothyroidism, unspecified; E78.5 Hyperlipidemia, unspecified; N40.1 Benign prostatic hyperplasia with lower urinary tract symptoms; R33.8 Other retention of urine; I10 Essential (primary) hypertension; H91.90 Unspecified hearing loss, unspecified ear; Z95.1 Presence of aortocoronary bypass graft; Z95.5 Presence of coronary angioplasty implant and graft; Z79.82 Long term (current) use of aspirin; Z79.899 Other long term (current) drug therapy; Z88.1 Allergy status to other antibiotic agents
CPT/HCPCS: 80048; 85025; 88300

== ENCOUNTER 2018-10-28 11:16 | Emergency (ER) | payer MEDICARE, BC ==
[2018-10-28 11:21] VITALS: TEMP 97.6
[2018-10-28] MEDS ORDERED: SODIUM CHLORIDE 0.9% 500 ML 500 ML IV STA (11:34)
[2018-10-28] MEDS ORDERED: MECLIZINE 25 MG TAB PO STA (11:34)
--- NOTE | 2018-10-28 11:36 | ED ---
General Adult HPI - General Chief complaint: Dizziness Stated complaint: abnormal EKG/dizzy Time Seen by Provider: 10/28/18 11:16 Source: patient, RN notes reviewed Mode of arrival: wheelchair Limitations: no limitations - History of Present Illness Initial comments: This is an 83-year-old male who presents emergency Department complaining that last night when he rolled over having started to spin and it felt like his vertigo that he has had in the past. Patient rolled over the other way in the dizziness went away. Patient went to see his primary medical care doctor was seen by physician it assistant and they did an EKG and they thought the patient should come to the emergency department to be worked up further. Patient denies any chest pain palpitations difficulty breathing or shortness of breath per patient denies any recent fever chills or cough. Patient denies any nausea. Patient states when the dizziness occurred this morning when he got up and walked around he felt off-balance but never felt syncopal. Patient denies any headache patient denies any focal numbness or weakness. Patient denies any recent injury or trauma. Patient states movement definitely appears to make it better or worse. - Related Data Home Medications Medication Instructions Recorded Confirmed Aspirin [Adult Low Dose Aspirin EC] 81 mg PO DAILY 06/24/18 10/28/18 Cholecalciferol [Vitamin D3] 5,000 unit PO DAILY 06/24/18 10/28/18 Metoprolol Tartrate [Lopressor] 25 mg PO BID 06/24/18 10/28/18 Multivitamin Packet 1 applic PO DAILY 06/24/18 10/28/18 [place] Oil 1200 1,200 mg PO DAILY 06/24/18 10/28/18 Sea Kelp 325 Mcg 325 mcg PO DAILY 06/24/18 10/28/18 Turmeric Root Extract [Turmeric] 500 mg PO BID 06/24/18 10/28/18 Tamsulosin [Flomax] 0.4 mg PO DAILY 10/28/18 10/28/18 Previous Rx's Medication Instructions Recorded Meclizine [Antivert] 25 mg PO TID #20 tab 10/28/18 Allergies Allergy/AdvReac Type Severity Reaction Status Date / Time cefuroxime [From Ceftin] AdvReac Severe Diarrhea, Verified 10/28/18 11:50 DEHYDRATION Review of Systems ROS Statement: Those systems with pertinent positive or pertinent negative responses have been documented in the HPI. ROS Other: All systems not noted in ROS Statement are negative. Past Medical History Past Medical History: Coronary Artery Disease (CAD), Hearing Disorder / Kristine fness, Osteoarthritis (OA), Prostate Disorder, Thyroid Disorder Additional Past Medical History / Comment(s): MITRAL VALVE REPAIR AGE 67. LT KNEE AND SHOULDER PROBLEMS/PAIN. 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 SPINAL STENOSIS. BPH. History of Any Multi-Drug Resistant Organisms: None Reported Past Surgical History: Back Surgery, Coronary Bypass/CABG, Heart Catheterization With Stent Additional Past Surgical History / Comment(s): CABG X1 VESSEL, MITRAL VALVE REPAIR. PTCA STENTS X2. RT ROTATOR CUFF REPAIR. ARTHROSCOPIC CEM KNEES. BACK SURG X2. Past Anesthesia/Blood Transfusion Reactions: No Reported Reaction Date of Last Stent Placement:: 2000 Past Psychological History: No Psychological Hx Reported Smoking Status: Never smoker Past Alcohol Use History: Occasional Past Drug Use History: None Reported - Past Family History Mother Family Medical History: No Reported History General Exam - General Exam Comments Initial Comments: GENERAL: Patient is well-developed and well-nourished. Patient is nontoxic and well- hydrated and is in mild distress. ENT: Neck is soft and supple. No significant lymphadenopathy is noted. Oropharynx is clear. Moist mucous membranes. Neck has full range of motion without eliciting any pain. EYES: The sclera were anicteric and conjunctiva were pink and moist. Extraocular movements were intact and pupils were equal round and reactive to light. Eyelids were unremarkable. PULMONARY: Unlabored respirations. Good breath sounds bilaterally. No audible rales rhonchi or wheezing was noted. CARDIOVASCULAR: There is a regular rate and rhythm without any murmurs gallops or rubs. ABDOMEN: Soft and nontender with normal bowel sounds. SKIN: Skin is clear with no lesions or rashes and otherwise unremarkable. NEUROLOGIC: Patient is alert and oriented x3. Cranial nerves II through XII are grossly intact. Motor and sensory are also intact. Normal speech, volume and content. Symmetrical smile. Finger to nose testing is normal bilaterally MUSCULOSKELETAL: Normal extremities with adequate strength and full range of motion. No lower extremity swelling or edema. No calf tenderness. LYMPHATICS: No significant lymphadenopathy is noted PSYCHIATRIC: Normal psychiatric evaluation. Limitations: no limitations Course Vital Signs 10/28/18 11:18 Temperature 97.6 F Pulse Rate 72 Respiratory 18 Rate Blood Pressure 158/95 O2 Sat by Pulse 98 Oximetry Medical Decision Making - Medical Decision Making EKG shows a sinus rhythm at 80 bpm WI interval is 232 QRS is 102 QT interval 44 QTC is 465. Patient's EKG shows no ST segment elevation or depression or T wave abnormalities are noted. CT of the brain shows some dilatation of the vertebral artery with some elongation. - Lab Data Result diagrams: 10/28/18 11:50 10/28/18 11:50 Lab Results 10/28/18 10/28/18 10/28/18 Range/Units 11:50 11:50 11:50 WBC 8.7 (3.8-10.6) k/uL RBC 5.14 (4.30-5.90) m/uL Hgb 14.8 (13.0-17.5) gm/dL Hct 44.1 (39.0-53.0) % MCV 85.9 (80.0-100.0) fL MCH 28.8 (25.0-35.0) pg MCHC 33.5 (31.0-37.0) g/dL RDW 13.5 (11.5-15.5) % Plt Count 221 (150-450) k/uL Neutrophils % 68 % Lymphocytes % 21 % Monocytes % 8 % Eosinophils % 1 % Basophils % 0 % Neutrophils # 5.9 (1.3-7.7) k/uL Lymphocytes # 1.9 (1.0-4.8) k/uL Monocytes # 0.7 (0-1.0) k/uL Eosinophils # 0.1 (0-0.7) k/uL Basophils # 0.0 (0-0.2) k/uL PT 10.6 (9.0-12.0) sec INR 1.0 (<1.2) APTT 27.3 (22.0-30.0) sec Sodium 137 (137-145) mmol/L Potassium 4.5 (3.5-5.1) mmol/L Chloride 102 (98-107) mmol/L Carbon Dioxide 28 (22-30) mmol/L Anion Gap 7 mmol/L BUN 17 (9-20) mg/dL Creatinine 0.84 (0.66-1.25) mg/dL Est GFR (CKD-EPI)AfAm >90 (>60 ml/min/1.73 sqM) Est GFR (CKD-EPI)NonAf 82 (>60 ml/min/1.73 sqM) Glucose 96 (74-99) mg/dL Calcium 10.1 (8.4-10.2) mg/dL Magnesium 1.8 (1.6-2.3) mg/dL Total Bilirubin 1.0 (0.2-1.3) mg/dL AST 26 (17-59) U/L ALT 27 (21-72) U/L Alkaline Phosphatase 57 (38-126) U/L Troponin I (0.000-0.034) ng/mL Total Protein 7.7 (6.3-8.2) g/dL Albumin 4.6 (3.5-5.0) g/dL 10/28/18 Range/Units 11:50 WBC (3.8-10.6) k/uL RBC (4.30-5.90) m/uL Hgb (13.0-17.5) gm/dL Hct (39.0-53.0) % MCV (80.0-100.0) fL MCH (25.0-35.0) pg MCHC (31.0-37.0) g/dL RDW (11.5-15.5) % Plt Count (150-450) k/uL Neutrophils % % Lymphocytes % % Monocytes % % Eosinophils % % Basophils % % Neutrophils # (1.3-7.7) k/uL Lymphocytes # (1.0-4.8) k/uL Monocytes # (0-1.0) k/uL Eosinophils # (0-0.7) k/uL Basophils # (0-0.2) k/uL PT (9.0-12.0) sec INR (<1.2) APTT (22.0-30.0) sec Sodium (137-145) mmol/L Potassium (3.5-5.1) mmol/L Chloride (98-107) mmol/L Carbon Dioxide (22-30) mmol/L Anion Gap mmol/L BUN (9-20) mg/dL Creatinine (0.66-1.25) mg/dL Est GFR (CKD-EPI)AfAm (>60 ml/min/1.73 sqM) Est GFR (CKD-EPI)NonAf (>60 ml/min/1.73 sqM) Glucose (74-99) mg/dL Calcium (8.4-10.2) mg/dL Magnesium (1.6-2.3) mg/dL Total Bilirubin (0.2-1.3) mg/dL AST (17-59) U/L ALT (21-72) U/L Alkaline Phosphatase (38-126) U/L Troponin I <0.012 (0.000-0.034) ng/mL Total Protein (6.3-8.2) g/dL Albumin (3.5-5.0) g/dL Disposition Clinical Impression: Vertigo, Ectasia of artery Disposition: HOME SELF-CARE Condition: Good Instructions (If sedation given, give patient instructions): Vertigo (ED) Prescriptions: Meclizine [Antivert] 25 mg PO TID #20 tab Is patient prescribed a controlled substance at d/c from ED?: No Referrals: Anand Fortune MD [Primary Care Provider] - 1-2 days Time of Disposition: 12:57
[2018-10-28 12:03] LABS: Basophils % (A) 0 %; Eosinophils # (A) 0.1 k/uL (0-0.7); Eosinophils % (A) 1 %; HCT 44.1 % (39.0-53.0); HGB 14.8 gm/dL (13.0-17.5); Lymphocytes # (A) 1.9 k/uL (1.0-4.8); Lymphocytes % (A) 21 %; MCH 28.8 pg (25.0-35.0); MCHC 33.5 g/dL (31.0-37.0); MCV 85.9 fL (80.0-100.0); Mean Platelet Volume 6.2; Monocytes # (A) 0.7 k/uL (0-1.0); Monocytes % (A) 8 %; Neutrophils # (A) 5.9 k/uL (1.3-7.7); Neutrophils % (A) 68 %; Platelet Count 221 k/uL (150-450); RBC 5.14 m/uL (4.30-5.90); RDW 13.5 % (11.5-15.5); WBC 8.7 k/uL (3.8-10.6)
[2018-10-28 12:12] LABS: ALT 27 U/L (21-72); AST 26 U/L (17-59); Albumin 4.6 g/dL (3.5-5.0); Alkaline Phosphatase 57 U/L (38-126); Anion Gap 7 mmol/L; Blood Urea Nitrogen 17 mg/dL (9-20); Calcium 10.1 mg/dL (8.4-10.2); Carbon Dioxide 28 mmol/L (22-30); Chloride 102 mmol/L (98-107); Glucose 96 mg/dL (74-99); Magnesium 1.8 mg/dL (1.6-2.3); Potassium 4.5 mmol/L (3.5-5.1); Sodium 137 mmol/L (137-145); Total Protein 7.7 g/dL (6.3-8.2)
[2018-10-28 12:14] LABS: Partial Thromboplastin Time 27.3 sec (22.0-30.0); Prothrombin Time 10.6 sec (9.0-12.0)
--- NOTE | 2018-10-28 12:31 | XR ---
EXAMINATION TYPE: XR chest 2V DATE OF EXAM: 10/28/2018 COMPARISON: Chest x-ray April 13, 2013. HISTORY: Chest pain and dysrhythmia. TECHNIQUE: Frontal and lateral views of the chest are obtained. FINDINGS: Post CABG changes with mediastinal clips and sternal wires is redemonstrated. There is chr onic parenchymal change without suspicious focal air space opacity, pleural effusion, or pneumothorax seen. The cardiac silhouette size appears within normal limits without focal sclerotic change in th e thoracic aorta. Metallic anchor right humeral head level from rotator cuff surgery is present. IMPRESSION: Chronic changes without acute pulmonary process.
--- NOTE | 2018-10-28 12:48 | CT ---
EXAMINATION TYPE: CT brain wo con DATE OF EXAM: 10/28/2018 COMPARISON: 07/15/2015 HISTORY: 83-year-old male with pain, Dizziness TECHNIQUE: Examination was done in axial plane without intravenous contrast. Coronal and sagittal r econstructions performed. CT DLP: 1038.4 mGycm Automated exposure control for dose reduction was used. FINDINGS: There is no evidence of acute intracranial hemorrhage, acute ischemic changes, mass, mass-effect, or extra-axial fluid collection. There is no effacement of cerebral sulci or basal subarachnoid cister ns. There is no hydrocephalus. There is no midline shift. Stein-white matter distinction is preserv ed. There is suggestion of some dolichoectasia the left vertebral artery with a caliber of 6 mm versus 4 mm in 2015. Mild generalized supratentorial volume loss. Paranasal sinuses and mastoid air cells are well pneumatized. Orbits and globes are intact. IMPRESSION: 1. 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 This may be an incidental finding. Clinically correlate. 2. Otherwise, no acute intracranial abnormality seen.
[2018-10-28 13:32] VITALS: BP 148/83; PULSE 71; RESP 17
== END 2018-10-28 13:32 | disposition home or self-care (01) ==
LOC: EC 11:16
DX: R42 Dizziness and giddiness (principal); I77.89 Other specified disorders of arteries and arterioles; I25.10 Atherosclerotic heart disease of native coronary artery without angina pectoris; H91.90 Unspecified hearing loss, unspecified ear; N40.0 Benign prostatic hyperplasia without lower urinary tract symptoms; Z79.82 Long term (current) use of aspirin; Z79.899 Other long term (current) drug therapy; Z88.1 Allergy status to other antibiotic agents; Z95.1 Presence of aortocoronary bypass graft; Z95.5 Presence of coronary angioplasty implant and graft
CPT/HCPCS: 36415; 70450; 71046; 80053; 83735; 84484; 85025; 85610; 85730; 93005; 96360; 96361; 99284

== ENCOUNTER 2020-02-08 09:55 | Inpatient (IN) | payer MEDICARE, BC ==
[2020-02-08 10:23] LABS: Glucose,Whole Blood 103 mg/dL (75-99)
[2020-02-08 10:31] LABS: Basophils % (A) 0 %; Eosinophils # (A) 0.2 k/uL (0-0.7); Eosinophils % (A) 3 %; HCT 44.4 % (39.0-53.0); HGB 15.3 gm/dL (13.0-17.5); Lymphocytes % (A) 25 %; MCHC 34.5 g/dL (31.0-37.0); Mean Platelet Volume 7.1; Monocytes # (A) 0.6 k/uL (0-1.0); Monocytes % (A) 8 %; Neutrophils % (A) 62 %; Platelet Count 182 k/uL (150-450); RBC 4.93 m/uL (4.30-5.90); RDW 13.3 % (11.5-15.5)
--- NOTE | 2020-02-08 10:38 | CT ---
EXAMINATION TYPE: CT brain wo con for TPA DATE OF EXAM: 02/08/2020 COMPARISON: Previous study dated 10/28/2018 HISTORY: Rt sided weakness, slurred speech CT DLP: 1070.4 mGycm Automated exposure control for dose reduction was used. FINDINGS: There are mild, generalized changes of sulcal prominence and ventriculomegaly, compatible with atroph ic change. There is diffuse periventricular white matter lucency there is no acute focal lesion, mass effect or midline shift identified. I do not see evidence of intracranial blood. Visualized portions of the paranasal sinuses and mastoids are clear. The bony calvarium is intact. IMPRESSION: 1. NO ACUTE INTRACRANIAL ABNORMALITY. 2. MILD DEGENERATIVE CHANGE.
[2020-02-08 10:39] LABS: ALT 16 U/L (4-49); AST 30 U/L (17-59); African American GFR (CKD) >90 (>60 ml/min/1.73 sqM); Albumin 4.5 g/dL (3.5-5.0); Alkaline Phosphatase 42 U/L (38-126); Anion Gap 8 mmol/L; Blood Urea Nitrogen 19 mg/dL (9-20); Calcium 9.3 mg/dL (8.4-10.2); Carbon Dioxide 25 mmol/L (22-30); Chloride 103 mmol/L (98-107); Glucose 102 mg/dL (74-99); Non-African American GFR(CKD) 81 (>60 ml/min/1.73 sqM); Potassium 4.6 mmol/L (3.5-5.1); Sodium 136 mmol/L (137-145); Total Bilirubin 1.3 mg/dL (0.2-1.3); Total Protein 7.5 g/dL (6.3-8.2)
[2020-02-08 10:52] LABS: Partial Thromboplastin Time 22.9 sec (22.0-30.0); Prothrombin Time 10.6 sec (9.0-12.0)
[2020-02-08] MEDS ORDERED: SODIUM CHLORIDE 0.9% 500 ML 500 ML IV ONE (10:57)
[2020-02-08] MEDS ORDERED: ASPIRIN 325 MG TAB PO STA (10:57)
--- NOTE | 2020-02-08 10:59 | ED ---
General Adult HPI - General Chief complaint: Neuro Symptoms/Deficit Stated complaint: facial droop, head injury 2 days ago Time Seen by Provider: 02/08/20 10:21 Source: patient, RN notes reviewed, old records reviewed Mode of arrival: ambulatory Limitations: no limitations - History of Present Illness Initial comments: 84-year-old male presenting with slurred speech and right-sided facial droop. This was noticed by his approximately 90 minutes prior to arrival. Onset approximately 8:30 AM. Uncertain if this patient had woke with these symptoms as this was the first [id number] conversation he had had with his who is a nurse. Patient was ambulatory, no other reported focal numbness or weakness. No history of CVA or TIA. He is on 81 mg of aspirin which he takes at night and did not take today yet. Symptoms had improved at the time of arrival to the emergency department. No headache. No chest pain or dyspnea. - Related Data Home Medications Medication Instructions Recorded Confirmed Aspirin [Adult Low Dose Aspirin EC] 81 mg PO DAILY 06/24/18 10/28/18 Cholecalciferol [Vitamin D3] 5,000 unit PO DAILY 06/24/18 10/28/18 Metoprolol Tartrate [Lopressor] 25 mg PO BID 06/24/18 10/28/18 Multivitamin Packet 1 applic PO DAILY 06/24/18 10/28/18 [place] Oil 1200 1,200 mg PO DAILY 06/24/18 10/28/18 Sea Kelp 325 Mcg 325 mcg PO DAILY 06/24/18 10/28/18 Turmeric Root Extract [Turmeric] 500 mg PO BID 06/24/18 10/28/18 Tamsulosin [Flomax] 0.4 mg PO DAILY 10/28/18 10/28/18 Previous Rx's Medication Instructions Recorded Meclizine [Antivert] 25 mg PO TID #20 tab 10/28/18 Allergies Allergy/AdvReac Type Severity Reaction Status Date / Time cefuroxime [From Ceftin] AdvReac Severe Diarrhea, Verified 10/28/18 11:50 DEHYDRATION Review of Systems ROS Statement: Those systems with pertinent positive or pertinent negative responses have been documented in the HPI. ROS Other: All systems not noted in ROS Statement are negative. Past Medical History Past Medical History: Coronary Artery Disease (CAD), Hearing Disorder / Deafness, Osteoarthritis (OA), Prostate Disorder, Thyroid Disorder Additional Past Medical History / Comment(s): MITRAL VALVE REPAIR AGE 67. LT KNEE AND SHOULDER PROBLEMS/PAIN. 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 SPINAL STENOSIS. BPH. History of Any Multi-Drug Resistant Organisms: None Reported Past Surgical History: Back Surgery, Coronary Bypass/CABG, Heart Catheterization With Stent Additional Past Surgical History / Comment(s): CABG X1 VESSEL, MITRAL VALVE REPAIR. PTCA STENTS X2. RT ROTATOR CUFF REPAIR. ARTHROSCOPIC CEM KNEES. BACK SURG X2. Past Anesthesia/Blood Transfusion Reactions: No Reported Reaction Date of Last Stent Placement:: 2000 Past Psychological History: No Psychological Hx Reported Smoking Status: Never smoker Past Alcohol Use History: Occasional Past Drug Use History: None Reported - Past Family History Mother Family Medical History: No Reported History General Exam Limitations: no limitations General appearance: alert, in no apparent distress Head exam: Present: atraumatic, normocephalic Eye exam: Present: normal appearance, PERRL, EOMI ENT exam: Present: normal exam Neck exam: Present: normal inspection. Absent: tenderness, meningismus Respiratory exam: Present: normal lung sounds bilaterally. Absent: respiratory distress, wheezes Cardiovascular Exam: Present: regular rate, normal rhythm GI/Abdominal exam: Present: soft. Absent: distended, tenderness, guarding Extremities exam: Present: normal inspection, normal capillary refill. Absent: pedal edema Neurological exam: Present: alert, oriented X3, motor sensory deficit (Slight right-sided facial droop, normal speech, NIH of 1) Psychiatric exam: Present: normal affect, normal mood Skin exam: Present: warm, dry, intact. Absent: cyanosis, diaphoretic Course Vital Signs 02/08/20 11:10 Pulse Rate 57 L Respiratory 14 Rate Blood Pressure 122/79 O2 Sat by Pulse 98 Oximetry - Reevaluation(s) Reevaluation #1: 02/08/[address] Loza, not a TPA candidate given the low NIH, uncertain onset and improving symptoms. Reevaluation #2: 02/08/20 12:35 Patient reevaluated, he has an NIH of 1 with right-sided facial droop. EKG Findings - EKG Comments: EKG Findings:: EKG: Sinus rhythm with sinus arrhythmia, first-degree AV block, right atrial enlargement, LVH, rate of 70, DE interval 236, QRS duration 100, QTC 453. Medical Decision Making - Medical Decision Making 84-year-old male presenting with dysarthria and facial droop. Dysarthria has resolved at the time of arrival. He has an NIH of 1. He is activated as a code stroke. Discussed case with the stroke neurologist who does not recommend TPA. Head CT is negative for intracranial hemorrhage or mass effect. CT angiography negative for stenosis or acute occlusion, there is a thyroid mass which the patient does know about and has followed as an outpatient. He has a normal CBC, normal CMP, negative troponin, he hasn't EKG showing sinus rhythm without definitive signs of ischemia. He is observed in the emergency department for approximately 2 and half hours with no no change in neurologic exam NIH remains 1 with minor facial droop on the right. His vital signs are stable. He is given a full strength aspirin 325 mg. He will be admitted to Dr. Riley who is aware of the patient with neurology on consult. - Lab Data Result diagrams: 02/08/20 10:09 02/08/20 10:09 Lab Results 02/08/20 02/08/20 02/08/20 Range/Units 10:09 10:09 10:09 WBC 8.0 (3.8-10.6) k/uL RBC 4.93 (4.30-5.90) m/uL Hgb 15.3 (13.0-17.5) gm/dL Hct 44.4 (39.0-53.0) % MCV 90.0 (80.0-100.0) fL MCH 31.0 (25.0-35.0) pg MCHC 34.5 (31.0-37.0) g/dL RDW 13.3 (11.5-15.5) % Plt Count 182 (150-450) k/uL Neutrophils % 62 % Lymphocytes % 25 % Monocytes % 8 % Eosinophils % 3 % Basophils % 0 % Neutrophils # 5.0 (1.3-7.7) k/uL Lymphocytes # 2.0 (1.0-4.8) k/uL Monocytes # 0.6 (0-1.0) k/uL Eosinophils # 0.2 (0-0.7) k/uL Basophils # 0.0 (0-0.2) k/uL PT 10.6 (9.0-12.0) sec INR 1.0 (<1.2) APTT 22.9 (22.0-30.0) sec Sodium 136 L (137-145) mmol/L Potassium 4.6 (3.5-5.1) mmol/L Chloride 103 (98-107) mmol/L Carbon Dioxide 25 (22-30) mmol/L Anion Gap 8 mmol/L BUN 19 (9-20) mg/dL Creatinine 0.85 (0.66-1.25) mg/dL Est GFR (CKD-EPI)AfAm >90 (>60 ml/min/1.73 sqM) Est GFR (CKD-EPI)NonAf 81 (>60 ml/min/1.73 sqM) Glucose 102 H (74-99) mg/dL POC Glucose (mg/dL) (75-99) mg/dL POC Glu Slot Machine Floor Person ID Calcium 9.3 (8.4-10.2) mg/dL Total Bilirubin 1.3 (0.2-1.3) mg/dL AST 30 (17-59) U/L ALT 16 (4-49) U/L Alkaline Phosphatase 42 (38-126) U/L Troponin I (0.000-0.034) ng/mL Total Protein 7.5 (6.3-8.2) g/dL Albumin 4.5 (3.5-5.0) g/dL 02/08/20 02/08/20 Range/Units 10:09 10:18 WBC (3.8-10.6) k/uL RBC (4.30-5.90) m/uL Hgb (13.0-17.5) gm/dL Hct (39.0-53.0) % MCV (80.0-100.0) fL MCH (25.0-35.0) pg MCHC (31.0-37.0) g/dL RDW (11.5-15.5) % Plt Count (150-450) k/uL Neutrophils % % Lymphocytes % % Monocytes % % Eosinophils % % Basophils % % Neutrophils # (1.3-7.7) k/uL Lymphocytes # (1.0-4.8) k/uL Monocytes # (0-1.0) k/uL Eosinophils # (0-0.7) k/uL Basophils # (0-0.2) k/uL PT (9.0-12.0) sec INR (<1.2) APTT (22.0-30.0) sec Sodium (137-145) mmol/L Potassium (3.5-5.1) mmol/L Chloride (98-107) mmol/L Carbon Dioxide (22-30) mmol/L Anion Gap mmol/L BUN (9-20) mg/dL Creatinine (0.66-1.25) mg/dL Est GFR (CKD-EPI)AfAm (>60 ml/min/1.73 sqM) Est GFR (CKD-EPI)NonAf (>60 ml/min/1.73 sqM) Glucose (74-99) mg/dL POC Glucose (mg/dL) 103 H (75-99) mg/dL POC Glu Slot Machine Floor Person ID Michael Herzog Calcium (8.4-10.2) mg/dL Total Bilirubin (0.2-1.3) mg/dL AST (17-59) U/L ALT (4-49) U/L Alkaline Phosphatase (38-126) U/L Troponin I <0.012 (0.000-0.034) ng/mL Total Protein (6.3-8.2) g/dL Albumin (3.5-5.0) g/dL Critical Care Time Critical Care Time: Yes Total Critical Care Time: 35 Disposition Clinical Impression: Cerebrovascular accident (CVA) Disposition: ADMITTED IP TO THIS [facility] Condition: Stable Is patient prescribed a controlled substance at d/c from ED?: No Referrals: Anand Fortune MD [Primary Care Provider] - 1-2 days Decision to Admit Reason: Admit from EC Decision Date: 02/08/20 Decision Time: 12:37
--- NOTE | 2020-02-08 12:08 | CT ---
EXAMINATION TYPE: CT angio head neck DATE OF EXAM: 02/08/2020 HISTORY: Rt sided weakness, slurred speech COMPARISON: Previous study of earlier today. CT DLP: 542.9 mGycm. Automated Exposure Control for Dose Reduction was Utilized. TECHNIQUE: CTA scan of the neck is performed with IV Contrast, patient injected with 65 mL of Isovue 370, axial images are obtained, coronal and sagittal reformatted images are reviewed. Three-D recons tructed images are created on an independent workstation and reviewed. FINDINGS: There are emphysematous changes within the lungs. There is groundglass opacity within the l ungs and which may represent ongoing alveolitis. There is a calcified granuloma in the left upper lob e. There is a mild reversal of the normal cervical lordosis which is replaced by mild kyphosis. There is diffuse degenerative disc disease and hypertrophic spondylosis including the C2-3 articulation. Alig nment remains normal. Atlantoaxial relationships are normal. There is diffuse uncovertebral joint dis ease. There is mild intervertebral foraminal narrowing bilaterally at C6-7 and even more so at C5-6 g reater on the right than the left. There is also intervertebral foraminal narrowing bilaterally at C4 -5 greater on the left than the right. Visualized portions of the paranasal sinuses and mastoids are clear. There is a normal origin of the great vessels. The thyroid gland is heterogenous. The right lobe is e nlarged. There is a 2 cm nodule adjacent to the posterior aspect of the right lobe of the thyroid whi ch appears to have a necrotic center. The left vertebral artery is dominant. The right vertebral artery appears to terminate in the PICA on the right. There is minimal calcification at the level of the carotid bulbs slightly greater on the left than th e right. There is no hemodynamically significant stenosis in either carotid bulb. 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 There is normal arborization of the middle cer ebral arteries. Both anterior communicating arteries are normal. Both posterior communicating arterie s appear to be patent. The posterior circulation is unremarkable. IMPRESSION: 1. NO HEMODYNAMICALLY SIGNIFICANT STENOSIS IN EITHER CAROTID ARTERY. 2. NORMAL CTA OF THE [place]. 3. RIGHT-SIDED THYROID MASS. THYROID ULTRASOUND WOULD BE SUGGESTED. 4. EMPHYSEMATOUS CHANGE. 5. EVIDENCE OF OLD GRANULOMATOUS DISEASE. 6. DEGENERATIVE CHANGES WITHIN THE SPINE.
[2020-02-08] MEDS ORDERED: ACETAMINOPHEN TAB 325 MG TAB PO PRN (12:32)
[2020-02-08] MEDS: SODIUM CHLORIDE 0.9% 1,000 ML IV SCH ×2 (13:09→23:21)
--- NOTE | 2020-02-08 18:41 | P.CNNES ---
History of Present Illness Consult date: 02/08/20 Reason for Consult: CVA History of Present Illness: The patient is an 84-year-old male who is seen in neurologic consultation on February 08, 2020, via teleneurology. The patient reports that his noticed a drooping of his right lip as well as slurring of his speech. The patient himself did not notice any symptoms. In review of the emergency department note, the symptoms reportedly started approximately 90 minutes prior to arrival at the ER. Upon arrival, the patient's symptoms had resolved. He was taken to the CAT scanner where a CT scan of the brain and CT angiogram were performed. The stroke neurologist was contacted. TPA was not recommended. The patient's NIH stroke scale score was reportedly a 1. CT scan of the brain revealed no signs of acute hemorrhage or infarct. CT angiogram revealed no large vessel occlusion. The patient denies a history of similar symptoms. He denies a history of stroke. He does reportedly have cardiac disease. He has had a CABG in the past. In regards to his symptoms, the patient denied headache and visual changes. He denied weakness and numbness in his extremities. He is not exactly sure if the symptoms were present upon awakening, or face started after he had been up for a while. Past Medical History Past Medical History: Coronary Artery Disease (CAD), CVA/TIA, Hearing Disorder / Deafness, Osteoarthritis (OA), Prostate Disorder, Thyroid Disorder Additional Past Medical History / Comment(s): MITRAL VALVE REPAIR AGE 67. LT KNEE AND SHOULDER PROBLEMS/PAIN. 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 SPINAL STENOSIS. BPH. History of Any Multi-Drug Resistant Organisms: None Reported Past Surgical History: Back Surgery, Coronary Bypass/CABG, Heart Catheterization With Stent Additional Past Surgical History / Comment(s): CABG X1 VESSEL, MITRAL VALVE REPAIR. PTCA STENTS X2. RT ROTATOR CUFF REPAIR. ARTHROSCOPIC CEM KNEES. BACK SURG X2. Past Anesthesia/Blood Transfusion Reactions: No Reported Reaction Date of Last Stent Placement:: 2000 Past Psychological History: No Psychological Hx Reported Smoking Status: Never smoker Past Drug Use History: None Reported - Past Family History Mother Family Medical History: No Reported History Medications and Allergies Home Medications Medication Instructions Recorded Confirmed Type Aspirin [Adult Low Dose Aspirin EC] 81 mg PO DAILY 06/24/18 02/08/20 History Cholecalciferol [Vitamin D3] 2,500 unit PO DAILY 06/24/18 02/08/20 History Metoprolol Tartrate [Lopressor] 25 mg PO BID 06/24/18 02/08/20 History Multivitamin Packet 1 applic PO DAILY 06/24/18 02/08/20 History [place] Oil 1200 1,200 mg PO DAILY 06/24/18 02/08/20 History Sea Kelp 325 Mcg 325 mcg PO DAILY 06/24/18 02/08/20 History Turmeric Root Extract [Turmeric] 500 mg PO BID 06/24/18 02/08/20 History Tamsulosin [Flomax] 0.4 mg PO HS 10/28/18 02/08/20 History Prevagen 1 tab PO DAILY 02/08/20 02/08/20 History Allergies Allergy/AdvReac Type Severity Reaction Status Date / Time cefuroxime [From Ceftin] AdvReac Severe Diarrhea, Verified 02/08/20 13:19 DEHYDRATION Physical Examination - Vital Signs Vital Signs: Vital Signs Temp Pulse Pulse Resp BP BP Pulse Ox 02/08/20 15:33 70 20 02/08/20 13:18 97.7 F 70 20 165/77 97 02/08/20 13:05 98.7 F 61 14 155/77 98 02/08/20 13:00 98.7 F 61 14 155/77 98 02/08/20 11:10 57 L 14 122/79 98 Intake and Output 02/08/20 02/08/20 02/08/20 06:59 14:59 22:59 Intake Total 300 Balance 300 Intake: Oral 300 Other: Weight 78.925 kg Gen.: The patient is well-nourished, well-developed and in no acute distress. HEENT: Head is atraumatic, normocephalic. Fundus not visualized. There is no scleral icterus. Mucous membranes are moist. Neck: Supple without carotid bruits Heart: Regular rate and rhythm Lungs: Clear to auscultation Extremities: Without edema Neurological examination Mental status: The patient is awake, alert and oriented 3. His speech is clear. There is no dysarthria or aphasia. Cranial nerves: Pupils are equal at 3 mm and reactive. Visual kinsey are full to confrontation. Extraocular movements are intact. There is no nystagmus. Facial sensation is intact. There is no facial asymmetry. Hearing is grossly intact. Uvula and palate are midline. Shoulder shrug is symmetric. Tongue protrudes midline. Motor: Strength is 5/5 throughout Sensation: Grossly intact to light touch Coordination: Finger to nose testing and [id number] testing are intact. Deep tendon reflexes: 2+/4+ throughout Results - Laboratory Findings CBC and BMP: 02/08/20 10:09 02/08/20 10:09 Abnormal Lab Findings: Abnormal Labs 02/08/20 02/08/20 10:09 10:18 Sodium 136 L Glucose 102 H POC Glucose (mg/dL) 103 H Assessment and Plan Assessment: 1. Transient ischemic attack 2. Cardiovascular disease Plan: 1. MRI brain without gadolinium 2. Dual antiplatelet therapy-Plavix and aspirin together 3 weeks then discontinue aspirin and continue Plavix 3. Hemoglobin A1c 4. Physical therapy and occupational therapy consultations 5. High-dose statin Time with Patient: Greater than 30 (spent 40 minutes with patient via teleneurology)
[2020-02-08] MEDS: ATORVASTATIN 80 MG TAB PO SCH (19:50)
[2020-02-08] MEDS: TAMSULOSIN 0.4 MG CAP.ER.24H PO SCH (21:23)
[2020-02-08] MEDS: METOPROLOL TARTRATE 25 MG TAB PO SCH (21:23)
--- NOTE | 2020-02-08 22:19 | P.HPIM ---
History of Present Illness This is a pleasant 84 years old male with past medical history of coronary artery disease status post stent placement and CABG, CVA, hearing difficulty, osteoarthritis. 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 Also patient denies any chest pain or dyspnea, no abdominal pain, no nausea vomiting. He tolerates diet well. No fever. No urine or bowel incontinence Vitas looks stable, labs including CBC, BMP, liver function tests and INR and troponins are all unremarkable. Chest x-ray: No acute process per Radiologist. EKG showing normal sinus rhythm at 70 bpm with no significant ST-T changes. CT of the brain: No acute process. CTA OF head and neck: No hemodynamically significant stenosis in either carotid arteries, normal CTA of the [place] of [place], right-sided thyroid mass, thyroid ultrasound would be suggested, emphysematous changes, evidence of old granulomatous disease, degenerative changes in the spine Review of Systems Review of systems CONSTITUTIONAL: No fever, no malaise, no fatigue. HEENT: No recent visual problems or hearing problems. Denied any sore throat. CARDIOVASCULAR: No orthopnea, PND, no palpitations, no syncope. PULMONARY: No shortness of breath, no cough, no hemoptysis. GASTROINTESTINAL: No diarrhea, no nausea, no vomiting, no abdominal pain. Normoactive bowel sounds. NEUROLOGICAL: No headaches, no weakness, no numbness. HEMATOLOGICAL: Denies any bleeding or petechiae. GENITOURINARY: Denies any burning micturition, frequency, or urgency. MUSCULOSKELETAL/RHEUMATOLOGICAL: Denies any joint pain, swelling, or any muscle pain. ENDOCRINE: Denies any polyuria or polydipsia. Past Medical History Past Medical History: Coronary Artery Disease (CAD), CVA/TIA, Hearing Disorder / Deafness, Osteoarthritis (OA), Prostate Disorder, Thyroid Disorder Additional Past Medical History / Comment(s): MITRAL VALVE REPAIR AGE 67. LT KNEE AND SHOULDER PROBLEMS/PAIN. 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 SPINAL STENOSIS. BPH. History of Any Multi-Drug Resistant Organisms: None Reported Past Surgical History: Back Surgery, Coronary Bypass/CABG, Heart Catheterization With Stent Additional Past Surgical History / Comment(s): CABG X1 VESSEL, MITRAL VALVE REPAIR. PTCA STENTS X2. RT ROTATOR CUFF REPAIR. ARTHROSCOPIC CEM KNEES. BACK SURG X2. Past Anesthesia/Blood Transfusion Reactions: No Reported Reaction Date of Last Stent Placement:: 2000 Past Psychological History: No Psychological Hx Reported Smoking Status: Never smoker Past Drug Use History: None Reported - Past Family History Mother Family Medical History: No Reported History Medications and Allergies Home Medications Medication Instructions Recorded Confirmed Type Aspirin [Adult Low Dose Aspirin EC] 81 mg PO DAILY 06/24/18 02/08/20 History Cholecalciferol [Vitamin D3] 2,500 unit PO DAILY 06/24/18 02/08/20 History Metoprolol Tartrate [Lopressor] 25 mg PO BID 06/24/18 02/08/20 History Multivitamin Packet 1 applic PO DAILY 06/24/18 02/08/20 History [place] Oil 1200 1,200 mg PO DAILY 06/24/18 02/08/20 History Sea Kelp 325 Mcg 325 mcg PO DAILY 06/24/18 02/08/20 History Turmeric Root Extract [Turmeric] 500 mg PO BID 06/24/18 02/08/20 History Tamsulosin [Flomax] 0.4 mg PO HS 10/28/18 02/08/20 History Prevagen 1 tab PO DAILY 02/08/20 02/08/20 History Allergies Allergy/AdvReac Type Severity Reaction Status Date / Time cefuroxime [From Ceftin] AdvReac Severe Diarrhea, Verified 02/08/20 13:19 DEHYDRATION Physical Exam Vitals: Vital Signs Temp Pulse Pulse Resp BP BP Pulse Ox 02/08/20 20:00 98.1 F 64 19 137/67 98 02/08/20 16:00 97.6 F 60 18 162/74 97 02/08/20 15:33 70 20 02/08/20 13:18 97.7 F 70 20 165/77 97 02/08/20 13:05 98.7 F 61 14 155/77 98 02/08/20 13:00 98.7 F 61 14 155/77 98 02/08/20 11:10 57 L 14 122/79 98 Intake and Output 02/08/20 02/08/20 02/08/20 06:59 14:59 22:59 Intake Total 300 Balance 300 Intake: Oral 300 Other: Weight 78.925 kg GENERAL: The patient is alert and oriented x3, not in any acute distress. Well developed, well nourished. HEENT: Pupils are round and equally reacting to light. EOMI. No scleral icterus. No conjunctival pallor. Normocephalic, atraumatic. No pharyngeal erythema. No thyromegaly. CARDIOVASCULAR: S1 and S2 present. No murmurs, rubs, or gallops. PULMONARY: Chest is clear to auscultation, no wheezing or crackles. ABDOMEN: Soft, nontender, nondistended, normoactive bowel sounds. No palpable organomegaly. MUSCULOSKELETAL: No joint swelling or deformity. EXTREMITIES: No cyanosis, clubbing, or pedal edema. NEUROLOGICAL: Gross neurological examination did not reveal any focal deficits. SKIN: No rashes. no petechiae. Results CBC & Chem 7: 02/08/20 10:09 02/08/20 10:09 Labs: Abnormal Lab Results - Last 24 Hours (Table) 02/08/20 02/08/20 Range/Units 10:09 10:18 Sodium 136 L (137-145) mmol/L Glucose 102 H (74-99) mg/dL POC Glucose (mg/dL) 103 H (75-99) mg/dL Thrombosis Risk Factor Assmnt - Choose All That Apply Any of the Below Risk Factors Present?: No Other Risk Factors: Yes Each Risk Factor Represents 3 Points: Age 75 years or older Other congenital or acquired thrombophilia - If yes, enter type in comment: Yes Each Risk Factor Represents 5 Points: Stroke (< 1 month) Thrombosis Risk Factor Assessment Total Risk Factor Score: 8 Thrombosis Risk Factor Assessment Level: High Risk Assessment and Plan Assessment: TIA with slurred speech and right facial droop Right thyroid mass History of coronary artery disease status post stent and CABG Osteoarthritis Hearing difficulty Plan: This is a pleasant 84 years old male who presents with TIA. Continue with aspirin 325 mg, continue with gentle hydration, check ultrasound of the thyroid gland for his thyroid mass, Neurology evaluated the patient and recommended MRI of the brain, dual antiplatelet therapy and to stop aspirin after 3 weeks and continue with Plavix, check hemoglobin A1c, PT/OT and high-dose statin. Also echocardiogram was ordered Labs and medication were reviewed.. Continue same treatment. Continue with symptomatic treatment. Resume home medication. Monitor lytes and vitals. DVT and GI prophylaxis. Further recommendations of the clinical course of the patient DVT prophylaxis: Subcutaneous heparin GI Prophylaxis: Pepcid PT/OT: Pending Prognosis is guarded
[2020-02-08] MEDS: HEPARIN SODIUM,PORCINE 5,000 UNIT/ML 1 ML VIAL SQ SCH (23:18)
[2020-02-09 03:51] LABS: Cholesterol 232 mg/dL (<200); HDL Cholesterol 38 mg/dL (40-60); LDL Cholesterol,Calculated 166 mg/dL (0-99); Triglycerides 138 mg/dL (<150)
--- NOTE | 2020-02-09 08:48 | US ---
EXAMINATION TYPE: US thyroid st tissue head/neck DATE OF EXAM: 02/09/2020 COMPARISON: Ultrasound 09/27/2017 CLINICAL HISTORY: Thyroid mass. GLAND SIZE: Bilaterally enlarged Right Lobe: 6..5 x 3.0 x 3.0 cm. Previous measurement 5.2 x 2.7 x 2.6 cm. Overall Parenchyma: heterogenous Left Lobe: 5.9 x 2.7 x 2.8 cm. Previous measurement 4.9 x 2.7 x 2.7 cm. Overall Parenchyma: heterogeneous Isthmus Thickness: 0.5 cm. Previous measurement 0.3 cm. NODULES RIGHT: # of nodules measured on right: 2 largest of multiple 1. 2.7 X 2.4 x 1.6 cm isoechoic solid nodule at the lateral mid pole with well-defined margins. Th is nodule is wider than tall and shows intranodular vascularity. Previous measurement 1.2 x 0.7 x 0.6 cm. This has enlarged over the interval. Consider biopsy. 2. 3.9 X 2.9 x 2.7 cm consolidation of nodules isoechoic solid nodule at the mid pole with poorly de fined margins. This nodule is wider than tall and shows intranodular vascularity. Previous measureme nt 3.0 x 1.8 x 2.3 cm. Couple of punctate calcifications may be present. Calcifications have been ass ociated with neoplasm. Consider biopsy. LEFT: # of nodules measured on left: 3 1. 0.9 X 1.0 x 1.0 cm isoechoic solid nodule at the upper pole with poorly defined margins. This n odule is wide as is tall and shows intranodular vascularity. 2. 2.9 X 3.1 x 2.4 cm isoechoic mixed nodule at the mid pole with poorly defined margins. This nodu le is wider than tall and shows intranodular vascularity. 3. 0.8 X 1.0 x 0.7 cm hypoechoic, complex cystic nodule at the lower medial pole with well-defined m argins. This nodule is wider than tall and shows no intranodular vascularity. ISTHMUS: # of nodules measured in the isthmus: 0 Bilateral neck scanned: superior to right thyroid a lymph node is imaged = 1.0 x 0.8 x 0.6cm. IMPRESSION: 1. Heterogenous multinodular goiter. Largest nodules which are larger than 1 cm on the right. 2. Right thyroid lobe nodules have increased in size, consider biopsy. Neoplasm not excluded.
[2020-02-09] MEDS: FAMOTIDINE 20 MG/2 ML VIAL IV SCH ×2 (08:52→20:01)
[2020-02-09] MEDS: HEPARIN SODIUM,PORCINE 5,000 UNIT/ML 1 ML VIAL SQ SCH ×2 (08:52→20:01)
[2020-02-09] MEDS: CHOLECALCIFEROL 1,000 UNIT TAB PO SCH (08:53)
[2020-02-09] MEDS: CLOPIDOGREL 75 MG TAB PO SCH (08:53)
[2020-02-09] MEDS: METOPROLOL TARTRATE 25 MG TAB PO SCH ×2 (08:53→20:02)
[2020-02-09] MEDS: ASPIRIN 325 MG TAB PO SCH (08:53)
--- NOTE | 2020-02-09 10:00 | ECHOF ---
Referral Reason:Thrombus MEASUREMENTS -------- HEIGHT: 172.7 cm WEIGHT: 78.9 kg BP: RVIDd: 2.7 cm (< 3.3) IVSd: 1.5 cm (0.6 - 1.1) LVIDd: 3.4 cm (3.9 - 5.3) LVPWd: 1.3 cm (0.6 - 1.1) IVSs: 2.0 cm LVIDs: 2.6 cm LVPWs: 1.8 cm Ao Diam: 3.6 cm (2.0 - 3.7) AV Cusp: 1.7 cm (1.5 - 2.6) LA Diam: 3.5 cm (2.7 - 3.8) MV EXCURSION: 17.007 mm (> 18.000) MV EF SLOPE: 25 mm/s (70 - 150) EPSS: 0.9 cm MV E Ciaran: 0.83 m/s MV DecT: 548 ms MV A Ciaran: 0.87 m/s MV E/A Ratio: 0.95 AR PHT: 1050 ms RAP: 5.00 mmHg RVSP: 16.07 mmHg FINDINGS -------- Sinus rhythm. This was a technically difficult study with suboptimal views. The left ventricular size is normal. There is moderate concentric left ventricular hypertrophy. O verall left ventricular systolic function is normal with, an EF between 55 - 60 %. There is paradox ical/dysynergic septal motion consistent with post-operative status. The right ventricle is normal in size. The left atrial size is normal. The right atrial size is normal. Unable to visualize the septum. Aortic valve is trileaflet and is mildly thickened. There is mild aortic regurgitation. Mitral valve is thickened with myxomatous degeneration. The mitral valve leaflets are moderately th ickened. Mild mitral annular calcification present. There is trace mitral regurgitation. There is minimal mitral valve prolapse. MV repair The tricuspid valve appears structurally normal. Mild tricuspid regurgitation present. Right vent ricular systolic pressure is normal at < 35 mmHg. There is no pulmonic regurgitation present. The aortic root size is normal. IVC Not well visulized. There is no pericardial effusion. Lumason used CONCLUSIONS -------- 1. There is moderate concentric left ventricular hypertrophy. 2. Overall left ventricular systolic function is normal with, an EF between 55 - 60 %. 3. There is paradoxical/dysynergic septal motion consistent with post-operative status. 4. Aortic valve is trileaflet and is mildly thickened. 5. There is mild aortic regurgitation. 6. Mitral valve is thickened with myxomatous degeneration. 7. The mitral valve leaflets are moderately thickened. 8. Mild mitral annular calcification present. 9. There is trace mitral regurgitation. 10. There is minimal mitral valve prolapse. 11. MV repair 12. Mild tricuspid regurgitation present. KILN BURNER: Camille Bajwa RDCS
--- NOTE | 2020-02-09 11:17 | MR ---
EXAMINATION TYPE: MR brain wo con DATE OF EXAM: 02/09/2020 COMPARISON: None HISTORY: TIA versus stroke CONTRAST: Performed utilizing 0 mL intravenous Gadavist gadolinium contrast. TECHNIQUE: Multiplanar, multiecho imaging on a 3.0 Sallie magnet is performed through the brain. Stud y is performed within 24 hours of arrival to the hospital. The craniovertebral junction is normal. The pituitary is normal. Diffusion-weighted imaging is performed. There is a large left basal ganglion area of increased sign al extending into the caudate lobe compatible with acute ischemic change. Additional scattered areas of hyperintensity are in the deep white matter which may be more chronic w clair matter ischemic changes. Ventricles and sulci are somewhat prominent for the patient age. IMPRESSIONS: 1. Acute left basal ganglion infarct. 2. Smaller chronic appearing deep white matter ischemic changes
[2020-02-09 11:56] LABS: Hemoglobin A1C 5.5 % (4.0-6.0)
[2020-02-09] MEDS: SODIUM CHLORIDE 0.9% 1,000 ML IV SCH ×2 (17:12→20:02)
[2020-02-09] MEDS: ATORVASTATIN 80 MG TAB PO SCH (20:01)
[2020-02-09] MEDS: TAMSULOSIN 0.4 MG CAP.ER.24H PO SCH (20:01)
--- NOTE | 2020-02-09 20:28 | CONS ---
CONSULTATION CHIEF COMPLAINT: CVA. This is an 84-year-old gentleman with history of coronary artery disease, status post CABG, hearing difficulty, osteoarthritis and prior CVA who presented to hospital with slurred speech and right-sided facial droop. Cardiology has been consulted because of his cardiac history. The patient denies chest pain, difficulty in breathing, palpitations, dizziness or syncope. He had a CT scan of the brain that was negative for significant carotid stenosis. He had an echocardiogram that revealed normal LV systolic function with mild aortic regurgitation. His LDL cholesterol is elevated at 166. An EKG showed sinus rhythm with changes of left ventricular hypertrophy. PAST MEDICAL HISTORY: His past medical history is significant for CAD, status post CABG. The patient is on turmeric, Flomax, Prevagen, metoprolol, aspirin and vitamin D. ALLERGIES: CEFTIN. FAMILY HISTORY: Negative for premature coronary artery disease. SOCIAL HISTORY: Negative for current smoking, EtOH abuse or drug abuse. REVIEW OF SYSTEMS: HEENT is unremarkable. CARDIAC: As described above. RESPIRATORY: As described above. GI: Negative. GENITOURINARY: Negative. ALLERGY: Negative. IMMUNOLOGY: Negative. SKIN: Negative. MUSCULOSKELETAL: Significant for arthritis. PSYCHOSOCIAL: Negative. ENDOCRINE: Negative. DERMATOLOGY: Negative. CONSTITUTIONAL: Negative. ONCOLOGICAL: Negative. CAR HOSTLER: As described above. Rest of the system review is not relevant. PHYSICAL EXAMINATION: Comfortable at rest. Vital signs are stable. There is jugular venous distention. Carotid upstroke is normal. There is no bruit. Chest exam reveals good air entry bilaterally. Heart exam reveals first and second heart sounds and an ejection systolic murmur in the aortic area. Abdomen is soft. Examination of extremities did not reveal any edema. Peripheral pulses are felt. ASSESSMENT: 1. Cerebrovascular accident. 2. Coronary artery disease, status post coronary artery bypass grafting. 3. Dyslipidemia. PLAN: Will watch the patient on telemetry to rule out atrial fibrillation. Otherwise, I agree with current management plans. MMODL / IJN: [id number] /
--- NOTE | 2020-02-09 20:48 | P.PN ---
Subjective Progress Note Date: 02/09/20 Patient was seen for a follow-up. Initial consultation performed by Dr. Valentine. Patient's was also present. Patient states that he is doing well. Offers no symptoms. No headache. MRI brain showed acute left basal ganglia infarct. Small chronic appearing deep white matter ischemic changes. Objective - Vital Signs Vital signs: Vital Signs Temp 97.9 F 02/09/20 16:00 Pulse 57 L 02/09/20 16:00 Resp 14 02/09/20 16:00 BP 123/69 02/09/20 16:00 Pulse Ox 98 02/09/20 16:00 Intake & Output 02/09/20 02/09/20 02/10/20 06:59 18:59 06:59 Intake Total 2356 Balance 2356 Weight 79 kg Intake: Intake, IV Titration 1200 Amount Sodium Chloride 0.9% 1, 1200 000 ml @ 75 mls/hr IV . [id number] ROBERTA Rx#:[id number] Oral 1156 Other: # Voids 1 1 - Exam Patient's mental status, speech and language functions are normal. Cranial nerves reveal pupils round and reacting, visual kinsey are full on confrontation. Extraocular muscles are intact. Patient has very mild flattening of the right nasolabial fold. Tongue protrudes the midline. Muscle strength testing patient has mild right pronation no drift. The strength is completely normal in both arms and legs distally and proximally. Sensations are equal with no neglect. No ataxia for [id number] testing. Tone and bulk of muscles normal. Patient states his gait is normal. - Labs CBC & Chem 7: 02/08/20 10:09 02/08/20 10:09 Labs: Abnormal Lab Results - Last 24 Hours (Table) 02/08/20 Range/Units 10:09 Cholesterol 232 H (<200) mg/dL LDL Cholesterol, Calc 166 H (0-99) mg/dL HDL Cholesterol 38 L (40-60) mg/dL Assessment and Plan Assessment: * CVA, left basal ganglia. The stroke is moderate size, but patient clinically is doing much better clinically. * History of mitral valve repair at age 67 * Hyperlipidemia * CAD, with history of coronary artery bypass surgery. Plan: * Patient had a moderate sized stroke involving the left basal ganglia. Clinically he is doing much better. * Patient will be continued on dual antiplatelet medications. After 21 days, the aspirin can be discontinued and he will be continued on Plavix 75 mg indefinitely. * Lipid panel showed cholesterol 232, LDL 166, HDL 38 and triglycerides 138. Patient was not on statins. Patient has agreed to be started on Lipitor 20 mg. * Patient's stroke probably is embolic. Patient's 2-D echo showed moderate concentric LVH, EF 55-60%. Paradoxical/dyssynergia septal motion consistent with post operative status. Mitral valve repair. Consider transesophageal echocardiogram, to rule out any embolic source. * Hemoglobin A1c 5.5 normal. * Permissible hypertension. May continue metoprolol that he is on. * Telemetry monitoring showing sinus rhythm.
[2020-02-10] MEDS: METOPROLOL TARTRATE 25 MG TAB PO SCH ×2 (08:49→21:23)
[2020-02-10] MEDS: CLOPIDOGREL 75 MG TAB PO SCH (08:49)
[2020-02-10] MEDS: ASPIRIN 325 MG TAB PO SCH (08:49)
[2020-02-10] MEDS: FAMOTIDINE 20 MG/2 ML VIAL IV SCH ×2 (08:49→21:23)
[2020-02-10] MEDS: CHOLECALCIFEROL 1,000 UNIT TAB PO SCH (08:49)
[2020-02-10] MEDS: HEPARIN SODIUM,PORCINE 5,000 UNIT/ML 1 ML VIAL SQ SCH ×2 (08:50→21:23)
[2020-02-10] MEDS: SODIUM CHLORIDE 0.9% 1,000 ML IV SCH (08:51)
--- NOTE | 2020-02-10 15:46 | PN ---
PROGRESS NOTE An 84-year-old gentleman who was admitted to the hospital with CVA. He is doing well. His neurological deficits have resolved. The patient is on aspirin, Lipitor, Plavix and Lopressor. Did not have any documented episodes of atrial fibrillation. On exam, patient is afebrile. Heart rate 98 beats per minute. Blood pressure is 108/68, respiratory rate is 18, O2 saturation is 97%. There is no jugular venous distention. Chest exam reveals good air entry bilaterally. Heart exam reveals first and second heart sounds. No gallop. Abdomen is soft. Exam of extremities did not reveal any edema. Peripheral pulses are felt. ASSESSMENT: 1. CVA. 2. Coronary artery disease, status post CABG. PLAN: Patient is on aspirin, Lipitor, Plavix. There were no documented episodes of atrial fibrillation. He will follow up with Dr. Reynolds. We may consider an outpatient event monitor or loop recorder. MMODL / IJN: [id number] /
[2020-02-10] MEDS ORDERED: ATORVASTATIN 20 MG TAB PO SCH (21:00)
--- NOTE | 2020-02-10 21:18 | P.PN ---
Subjective Progress Note Date: 02/10/20 Patient was seen for a follow-up. Initial consultation performed by Dr. Valentine. Patient states that he is doing well. Offers no symptoms. No headache. MRI brain showed acute left basal ganglia infarct. Small chronic appearing deep white matter ischemic changes. Objective - Vital Signs Vital signs: Vital Signs Temp 98.2 F 02/10/20 19:54 Pulse 68 02/10/20 19:54 Resp 16 02/10/20 19:54 BP 122/64 02/10/20 19:54 Pulse Ox 97 02/10/20 19:54 Intake & Output 02/10/20 02/10/20 02/11/20 06:59 18:59 06:59 Intake Total 600 750 Output Total 400 Balance 200 750 Weight 79.9 kg Intake: Intake, IV Titration 750 Amount Sodium Chloride 0.9% 1, 750 000 ml @ 75 mls/hr IV . [id number] ROBERTA Rx#:[id number] Oral 600 Output: Urine 400 Other: # Voids 1 1 # Bowel Movements 0 - Exam Patient's mental status, speech and language functions are normal. No aphasia or dysarthria. Cranial nerves reveal pupils round and reacting, visual kinsey are full on confrontation. Extraocular muscles are intact. Patient has very mild flattening of the right nasolabial fold. Tongue protrudes the midline. Muscle strength testing patient has mild right pronation no drift. The strength is completely normal in both arms and legs distally and proximally. Sensations are equal with no neglect. No ataxia for [id number] testing. Tone and bulk of muscles normal. Patient states his gait is normal. - Labs CBC & Chem 7: 02/08/20 10:09 02/08/20 10:09 Assessment and Plan Assessment: * CVA, left basal ganglia. The stroke is moderate size, but patient clinically is doing much better clinically. * History of mitral valve repair at age 67 * Hyperlipidemia * CAD, with history of coronary artery bypass surgery. Plan: * Patient had a moderate sized stroke involving the left basal ganglia. Clinically he is doing much better. * Patient will be continued on dual antiplatelet medications. After 21 days, the aspirin can be discontinued and he will be continued on Plavix 75 mg indefinitely. * Lipid panel showed cholesterol 232, LDL 166, HDL 38 and triglycerides 138. Patient was not on statins. Patient has agreed to be started on Lipitor 20 mg. * Patient undergoing transesophageal echocardiogram tomorrow. * Hemoglobin A1c 5.5 normal. * Permissible hypertension. May continue metoprolol that he is on. * Neurologically clear for discharge if NATO comes back negative.
[2020-02-10] MEDS: TAMSULOSIN 0.4 MG CAP.ER.24H PO SCH (21:23)
--- NOTE | 2020-02-11 | P.PN ---
Subjective Progress Note Date: 02/09/20 Principal diagnosis: Acuet CVA with basal ganglia infarct This is a pleasant 84 years old male with past medical history of coronary artery disease status post stent placement and CABG, CVA, hearing difficulty, osteoarthritis. 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 Also patient denies any chest pain or dyspnea, no abdominal pain, no nausea vomiting. He tolerates diet well. No fever. No urine or bowel incontinence Vitas looks stable, labs including CBC, BMP, liver function tests and INR and troponins are all unremarkable. Chest x-ray: No acute process per Radiologist. EKG showing normal sinus rhythm at [address]pm with no significant ST-T changes. CT of the brain: No acute process. CTA OF head and neck: No hemodynamically significant stenosis in either carotid arteries, normal CTA of the crow of Alaniz, right-sided thyroid mass, thyroid ultrasound would be suggested, emphysematous changes, evidence of old granulomatous disease, degenerative changes in the spine 02/09/2020 Patient is currently awake alert oriented x3. Denies any slurred speech. No difficulty in swallowing. Patient had MRI brain showed acute left basal ganglia infarct. Small chronic appearing deep white matter ischemic changes. 2D echocardiogram showed ejection fraction 55 to 60% and paradoxical/dyssynergia septal motion consistent with postoperative status. Currently being continued on aspirin and Plavix. Statin started. Neurology is on board. Recommends NATO to rule out embolic CVA. Cardiology was consulted for NATO. Current medications reviewed. Objective - Vital Signs Vital signs: Vital Signs Temp 97.8 F 02/09/20 12:00 Pulse 75 02/09/20 12:00 Resp 16 02/09/20 12:00 BP 139/68 02/09/20 12:00 Pulse Ox 97 02/09/20 12:00 Intake & Output 02/08/20 02/09/20 02/09/20 18:59 06:59 18:59 Intake Total 300 240 Balance 300 240 Weight 78.925 kg 79 kg Intake: Oral 300 240 Other: # Voids 1 1 - Exam GENERAL: The patient is alert and oriented x3, not in any acute distress. Well developed, well nourished. HEENT: Pupils are round and equally reacting to light. EOMI. No scleral icterus. No conjunctival pallor. Normocephalic, atraumatic. No pharyngeal erythema. No thyromegaly. CARDIOVASCULAR: S1 and S2 present. No murmurs, rubs, or gallops. PULMONARY: Chest is clear to auscultation, no wheezing or crackles. ABDOMEN: Soft, nontender, nondistended, normoactive bowel sounds. No palpable organomegaly. MUSCULOSKELETAL: No joint swelling or deformity. EXTREMITIES: No cyanosis, clubbing, or pedal edema. NEUROLOGICAL: Gross neurological examination did not reveal any focal deficits. SKIN: No rashes. no petechiae. - Labs CBC & Chem 7: 02/08/20 10:09 02/08/20 10:09 Labs: Abnormal Lab Results - Last 24 Hours (Table) 02/08/20 Range/Units 10:09 Cholesterol 232 H (<200) mg/dL LDL Cholesterol, Calc 166 H (0-99) mg/dL HDL Cholesterol 38 L (40-60) mg/dL Assessment and Plan Assessment: Acute CVA with slurred speech and right facial droop.MRI showed left basilar ganglia infarct. History of mitral valve repair at age 67 Hyperlipidemia Right thyroid mass History of coronary artery disease status post stent and CABG Osteoarthritis Hearing difficulty Plan: Patient will be continued on dual antiplatelet therapy with aspirin and Plavix for 21 days followed by Plavix 75 mg indefinitely. Continued on Lipitor. As per neuro recommendations cardiology was consulted for NATO due to possible embolic stroke. Continue monitoring and follow-up closely. PT OT is following. Discussed with his at bedside in detail. GI Prophylaxis: Pepcid PT/OT: Pending Prognosis is guarded Time with Patient: Greater than 30
[2020-02-11] MEDS ORDERED: fentaNYL (PF) 50 MCG/ML 2 ML AMP ONE (08:27)
[2020-02-11] MEDS ORDERED: IV FLUID CONTINUATION 700 ML IV ONE (08:35)
[2020-02-11] MEDS: BENZOCAINE SPRAY 1 CAN MUCOUS MEM ONE ×2 (08:37→08:40)
[2020-02-11] MEDS ORDERED: fentaNYL (PF) 50 MCG/ML 2 ML AMP IVP ONE (08:43)
[2020-02-11] MEDS ORDERED: MIDAZOLAM 2 MG/2 ML VIAL IVP ONE (08:43)
[2020-02-11] MEDS ORDERED: SODIUM CHLORIDE 0.9% 1,000 ML IV SCH (09:00)
--- NOTE | 2020-02-11 09:04 | P.TEE ---
Indications for Procedure(s): CVA Date of Procedure: 02/11/20 Preoperative Diagnosis: CVA Postoperative Diagnosis: No definite cardiac source of emboli. Moderate plaque in the aorta Description of Procedure(s): INDICATION: This is a 84-year-old gentleman with history of mitral valve repair and ischemic heart disease who was noted to have evidence of CVA involving the basal ganglia. A NATO examination is requested to rule out any Cardec source of emboli CONSENT:. Informed verbal consent was obtained from the patient PROCEDURE: Patient was brought to the lab in a fasting state. He was prepped and draped in the usual fashion. Patient was given IV sedation with 1 mg of Versed and 25 mics of fentanyl. The throat was sprayed with Cetacaine. A lubricated Omni probe was introduced into the oropharynx and advanced into the esophagus. Multiple views were obtained both from the stomach and esophagus. Color, pulsed and continuous with Doppler studies were performed. Saline contrast bubble injection also performed. Patient tolerated the procedure FINDINGS:. The aortic pressure is tricuspid. The posterior leaflet is heavily calcified and stiff and not mobile. Valve area by planimetry is 2.8 cm. There is moderate eccentric aortic regurgitation. The mitral valve is status post repair. This valve seemed to function normally without any significant mitral regurgitation or stenosis. The left atrial appendage is small and free of any clot. The interatrial septum appeared to be intact without any spontaneous shunt. Injection of the saline contrast injection and not crossing of bubbles. The heparin for function appear to be normal. Left atrium is mildly enlarged. The aorta showed mild to moderate plaque IMPRESSION: #1. Tricuspid aortic valve with thin mobile and stiff posterior leaflet. There is eccentric moderate aortic regurgitation #2. Mitral valve showed evidence of repair without any stenosis or regurgitation #3. Atrial appendage is small and free of any clot. 4. No evidence of PFO. #5. The aorta showed mild to moderate plaque of 5. Left ventricle function appeared preserved PLAN:. Continue current medical therapy. May consider long-term monitoring to rule out any atrial fibrillation
[2020-02-11] MEDS: SODIUM CHLORIDE 0.9% 1,000 ML IV SCH ×2 (09:27→10:19)
[2020-02-11 09:47] VITALS: PULSE 70
[2020-02-11] MEDS: FAMOTIDINE 20 MG/2 ML VIAL IV SCH (10:12)
[2020-02-11] MEDS: ASPIRIN 325 MG TAB PO SCH (10:15)
[2020-02-11] MEDS: CLOPIDOGREL 75 MG TAB PO SCH (10:15)
[2020-02-11] MEDS: METOPROLOL TARTRATE 25 MG TAB PO SCH (10:16)
[2020-02-11] MEDS: CHOLECALCIFEROL 1,000 UNIT TAB PO SCH (10:16)
[2020-02-11] MEDS: HEPARIN SODIUM,PORCINE 5,000 UNIT/ML 1 ML VIAL SQ SCH (10:16)
[2020-02-11 11:33] VITALS: BP 135/66; RESP 16; TEMP 97
--- NOTE | 2020-02-11 14:29 | P.PN ---
Subjective Progress Note Date: 02/11/20 Patient was seen for a follow-up. Initial consultation performed by Dr. Valentine. Patient states that he is doing well. Offers no symptoms. No headache. Patient is laying comfortably in the bed. Denies any new focal symptoms. MRI brain showed acute left basal ganglia infarct. Small chronic appearing deep white matter ischemic changes. Objective - Vital Signs Vital signs: Vital Signs Temp 97 F L 02/11/20 11:14 Pulse 70 02/11/20 09:45 Resp 16 02/11/20 11:14 BP 135/66 02/11/20 11:14 Pulse Ox 97 02/11/20 11:14 Intake & Output 02/10/20 02/11/20 02/11/20 18:59 06:59 18:59 Intake Total 600 2055 75 Output Total 400 Balance 200 2055 75 Weight 80.6 kg Intake: IV 825 75 Sodium Chloride 0.9% 1, 825 000 ml @ 75 mls/hr IV . [id number] ROBERTA Rx#:[id number] Intake, IV Titration 750 Amount Sodium Chloride 0.9% 1, 750 000 ml @ 75 mls/hr IV . [id number] ROBERTA Rx#:[id number] Oral 600 480 0 Output: Urine 400 Other: Voiding Method Toilet Toilet # Voids 1 # Bowel Movements 0 - Exam Patient's mental status, speech and language functions are normal. No aphasia or dysarthria. Cranial nerves reveal pupils round and reacting, visual kinsey are full on confrontation. Extraocular muscles are intact. Patient has very mild flattening of the right nasolabial fold. Tongue protrudes the midline. Muscle strength testing patient has mild right pronation no drift. The strength is completely normal in both arms and legs distally and proximally. Sensations are equal with no neglect. No ataxia for [id number] testing. Tone and bulk of muscles normal. Patient states his gait is normal. - Labs CBC & Chem 7: 02/08/20 10:09 02/08/20 10:09 Assessment and Plan Assessment: * CVA, left basal ganglia. The stroke is moderate size, but patient clinically is doing much better clinically. * History of mitral valve repair at age 67 * Hyperlipidemia * CAD, with history of coronary artery bypass surgery. Plan: * Patient had a moderate sized stroke involving the left basal ganglia. Clinically he is doing much better. * Patient will be continued on dual antiplatelet medications. After 21 days, the aspirin can be discontinued and he will be continued on Plavix 75 mg indefinitely. * Lipid panel showed cholesterol 232, LDL 166, HDL 38 and triglycerides 138. P atient was not on statins. Patient has agreed to be started on Lipitor 20 mg. * Patient underwent transesophageal echocardiogram today. Aortic valve is tricuspid. There is moderate eccentric aortic regurgitation. Mitral valve is status post repair. Valve is functioning normally without significant mitral regurg or stenosis. Left atrial appendage is small and free of any clot. No PFO or interatrial shunt with contrast injection. Overall, no embolic source identified. * Hemoglobin A1c 5.5 normal. * Neurologically clear for discharge. May follow up with neurologist locally outpatient, in 2-4 weeks.
--- NOTE | 2020-02-12 08:57 | P.DS ---
Providers Date of admission: 02/08/20 12:32 Expected date of discharge: 02/11/20 Attending physician: Michael Riley Consults: 02/08/20 12:33 Consult Physician Routine Consulting Provider: Elmira Valentine Consult Reason/Comments: CVA Do you want consulting provider notified?: Yes 02/09/20 22:32 Consult Physician Routine Consulting Provider: Derrick Strange Consult Reason/Comments: NATO possible embolic stroke. 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 Patient will follow-up with Dr. Fortune upon discharge. Patient also inst ructed to follow-up with cardiology Dr. reynolds in the outpatient setting. Patient will continue on aspirin and Plavix along with Lipitor. Total time taken is 35 minutes. History of present illness This is an 84-year-old male who was recently admitted with slurring of speech and right-sided facial droop and was being closely monitored. Patient had a CT of the brain showing no acute process and CTA of the head and neck showing no hemodynamically significant stenosis in either carotid arteries and a normal CTA of the [place] with a right-sided thyroid mass, emphysematous changes, evidence of old granulomatous disease and degenerative changes within the spine. Patient was seen and evaluated by neurology recommending MRI of the brain. MRI showed acute left basal ganglia infarct with small chronic appearing deep white matter changes. Patient also underwent a 2-D echo showing an ejection fraction of 55-60%. Neurology recommending NATO and was evaluated by cardiology and u nderwent NATO showing tricuspid aortic valve with thin mobile and stiff posterior leaflet with moderate aortic regurgitation present, atrial appendage is small and free of any clots with no evidence of PFO in the aorta showing mild to moderate plaque 5. Patient will follow up with cardiology in the outpatient setting. Patient will also continue on aspirin and Plavix along with Lipitor upon discharge. Patient is feeling much better and has been anticipating going home. Currently no reports of chest pain, shortness of breath, or palpitations. Patient is afebrile. No reports of nausea or vomiting and patient is tolerating diet. Guarded prognosis. On exam vital signs are stable. Temp is 97.0F, pulse is 70, respirations are 16, blood pressure is 135/66, oxygen saturation is 97% on room air. Cardio S1, S2 are muffled. Respiratory shows diminished breath sounds at the bases with no wheezing or rhonchi noted. Abdomen is soft, obese, and mildly tender upon palpation. Nervous system shows no focal deficits. Please refer to medication reconciliation sheet for a list of medications. Patient Condition at Discharge: Stable Plan - Discharge Summary Discharge Rx Participant: No New Discharge Prescriptions: New Aspirin 325 mg PO DAILY #21 tab Atorvastatin [Lipitor] 80 mg PO HS #30 tab Clopidogrel [Plavix] 75 mg PO DAILY #30 tab Atorvastatin [Lipitor] 20 mg PO HS 30 Days #30 tab Continue Turmeric Root Extract [Turmeric] 500 mg PO BID Cholecalciferol [Vitamin D3 (25 Mcg = 1000 Iu)] 2,500 unit PO DAILY Metoprolol Tartrate [Lopressor] 25 mg PO BID [place] Oil 1200 1,200 mg PO DAILY Multivitamin Packet 1 applic PO DAILY Sea Kelp 325 Mcg 325 mcg PO DAILY Tamsulosin [Flomax] 0.4 mg PO HS Prevagen 1 tab PO DAILY Discontinued Aspirin [Adult Low Dose Aspirin EC] 81 mg PO DAILY Discharge Medication List Cholecalciferol [Vitamin D3 (25 Mcg = 1000 Iu)] 2,500 unit PO DAILY 06/24/18 [History] Metoprolol Tartrate [Lopressor] 25 mg PO BID 06/24/18 [History] Multivitamin Packet 1 applic PO DAILY 06/24/18 [History] [place] Oil 1200 1,200 mg PO DAILY 06/24/18 [History] Sea Kelp 325 Mcg 325 mcg PO DAILY 06/24/18 [History] Turmeric Root Extract [Turmeric] 500 mg PO BID 06/24/18 [History] Tamsulosin [Flomax] 0.4 mg PO HS 10/28/18 [History] Prevagen 1 tab PO DAILY 02/08/20 [History] Aspirin 325 mg PO DAILY #21 tab 02/10/20 [Rx] Atorvastatin [Lipitor] 80 mg PO HS #30 tab 02/10/20 [Rx] Clopidogrel [Plavix] 75 mg PO DAILY #30 tab 02/10/20 [Rx] Atorvastatin [Lipitor] 20 mg PO HS 30 Days #30 tab 02/11/20 [Rx] Follow up Appointment(s)/Referral(s): Anand Fortune MD [Primary Care Provider] - 02/13/20 3:20 pm Scotty Reynolds MD [STAFF PHYSICIAN] - 1 Week (Please call to schedule follow - up) Patient Instructions/Handouts: Ischemic Stroke (DC) Activity/Diet/Wound Care/Special Instructions: Activity Limited until follow-up Continue current diet Follow-up with cardiology in the outpatient setting Follow-up with primary care provider in the outpatient setting Continue with aspirin for an additional 21 days along with Plavix 75 mg daily and then may discontinue the aspirin and continue with Plavix only. Continue with Lipitor 20 mg daily although 80 mg recommended by cardiology and neurology. Discharge Disposition: HOME SELF-CARE
--- NOTE | 2020-02-12 09:02 | P.PN ---
Subjective Progress Note Date: 02/10/20 Principal diagnosis: Acute CVA with basal ganglia infarct This is a pleasant 84 years old male with past medical history of coronary artery disease status post stent placement and CABG, CVA, hearing difficulty, osteoarthritis. 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 Also patient denies any chest pain or dyspnea, no abdominal pain, no nausea vomiting. He tolerates diet well. No fever. No urine or bowel incontinence Vitas looks stable, labs including CBC, BMP, liver function tests and INR and troponins are all unremarkable. Chest x-ray: No acute process per Radiologist. EKG showing normal sinus rhythm at 70 bpm with no significant ST-T changes. CT of the brain: No acute process. CTA OF head and neck: No hemodynamically significant stenosis in either carotid arteries, normal CTA of the [place], right-sided thyroid mass, thyroid ultrasound would be suggested, emphysematous changes, evidence of old granulomatous disease, degenerative changes in the spine 02/09/2020 Patient is currently awake alert oriented x3. Denies any slurred speech. No difficulty in swallowing. Patient had MRI brain showed acute left basal ganglia infarct. Small chronic appearing deep white matter ischemic changes. 2D echocardiogram showed ejection fraction 55 to 60% and paradoxical/dyssynergia septal motion consistent with postoperative status. Currently being continued on aspirin and Plavix. Statin started. Neurology is on board. Recommends NATO to rule out embolic CVA. Cardiology was consulted for NATO. Current medications reviewed. 02/10/2020 Patient is seen and evaluated and follow-up with no acute overnight issues. Patient awaiting to undergo NATO with cardiology per neurology recommendations to rule out any embolic source of CVA. Patient has been up and walking the room with a steady gait with no deficits noted. Patient denies any chest pain, shortness of breath, or palpitations. Patient is afebrile. No reports of nausea or vomiting and patient is tolerating diet. Patient is currently maintai benny on aspirin and Plavix and atorvastatin was started. refused high-dose statin but is agreeable with 20 mg and this was initiated. Will continue to monitor closely and await for NATO results. Objective - Vital Signs Vital signs: Vital Signs Temp 97 F L 02/11/20 11:14 Pulse 70 02/11/20 09:45 Resp 16 02/11/20 11:14 BP 135/66 02/11/20 11:14 Pulse Ox 97 02/11/20 11:14 Intake & Output 02/11/20 02/12/20 02/12/20 18:59 06:59 18:59 Intake Total 75 Balance 75 Intake: IV 75 Oral 0 Other: Voiding Method Toilet - Exam GENERAL: The patient is alert and oriented x3, not in any acute distress. Well developed, well nourished. HEENT: Pupils are round and equally reacting to light. EOMI. No scleral icterus. No conjunctival pallor. Normocephalic, atraumatic. No pharyngeal erythema. No thyromegaly. CARDIOVASCULAR: S1 and S2 present. No murmurs, rubs, or gallops. PULMONARY: Chest is clear to auscultation, no wheezing or crackles. ABDOMEN: Soft, nontender, nondistended, normoactive bowel sounds. No palpable organomegaly. MUSCULOSKELETAL: No joint swelling or deformity. EXTREMITIES: No cyanosis, clubbing, or pedal edema. NEUROLOGICAL: Gross neurological examination did not reveal any focal deficits. SKIN: No rashes. no petechiae. 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 MRI showed left basilar ganglia infarct. History of mitral valve repair at age 67 Hyperlipidemia Right thyroid mass, follow-up outpatient History of coronary artery disease status post stent and CABG Osteoarthritis Hearing difficulty GI Prophylaxis: Pepcid Plan: Patient will be continued on dual antiplatelet therapy with aspirin and Plavix for 21 days followed by Plavix 75 mg indefinitely. Continued on Lipitor. As per neuro recommendations cardiology was consulted for NATO due to possible embolic stroke. Cardiology consult pending at this time. Continue monitoring and follow-up closely. PT OT is following. Discussed with his at bedside in detail. Per cardiology patient could follow-up in the outpatient setting although family is persistent on obtaining a NATO prior to discharge and this will be scheduled for the morning. Will await NATO report. Prognosis is guarded. Further recommendations to follow. Despite discharge in 24-48 hours.
== END 2020-02-11 15:06 | disposition home or self-care (01) | DRG 66 ==
LOC: EC 09:55 → 3SCARD 12:32
PROVIDERS: ADMIT Internal Medicine; ATTEND Internal Medicine
PROC: B246ZZ4 Ultrasonography of Right and Left Heart, Transesophageal (ICD-10-PCS; principal; 2020-02-11 08:30)
DX: I63.9 Cerebral infarction, unspecified (principal); E07.9 Disorder of thyroid, unspecified; E78.5 Hyperlipidemia, unspecified; H91.90 Unspecified hearing loss, unspecified ear; I25.10 Atherosclerotic heart disease of native coronary artery without angina pectoris; M19.90 Unspecified osteoarthritis, unspecified site; N40.0 Benign prostatic hyperplasia without lower urinary tract symptoms; R29.701 NIHSS score 1; R29.810 Facial weakness; S09.90XA Unspecified injury of head, initial encounter; R47.81 Slurred speech; I35.1 Nonrheumatic aortic (valve) insufficiency; I70.0 Atherosclerosis of aorta; E78.00 Pure hypercholesterolemia, unspecified; M25.562 Pain in left knee; M25.512 Pain in left shoulder; Z88.1 Allergy status to other antibiotic agents; Z79.02 Long term (current) use of antithrombotics/antiplatelets; Z79.82 Long term (current) use of aspirin; Z79.899 Other long term (current) drug therapy; Z86.73 Personal history of transient ischemic attack (TIA), and cerebral infarction without residual deficits; Z95.1 Presence of aortocoronary bypass graft; Z95.5 Presence of coronary angioplasty implant and graft; Z11.59 Encounter for screening for other viral diseases; M48.00 Spinal stenosis, site unspecified; R40.2363 Coma scale, best motor response, obeys commands, at hospital admission; R40.2143 Coma scale, eyes open, spontaneous, at hospital admission; R40.2253 Coma scale, best verbal response, oriented, at hospital admission
CPT/HCPCS: 36415; 70450; 70496; 70498; 70551; 76536; 80053; 80061; 82607; 82747; 83036; 84443; 84484; 85025; 85610; 85730; 93005; 93306; 93312; 93320; 93325; 96360; 99291

== ENCOUNTER 2021-09-11 14:05 | Emergency (ER) | payer BC, MEDICARE ==
[2021-09-11 14:10] VITALS: RESP 16; TEMP 97.8
--- NOTE | 2021-09-11 14:37 | XR ---
EXAMINATION TYPE: XR elbow complete RT DATE OF EXAM: 09/11/2021 COMPARISON: NONE HISTORY: Pain TECHNIQUE: 4 view FINDINGS: There is large spur on the olecranon process of the ulna. There is soft tissue swelling ove r the olecranon process. There is nondisplaced fracture of the large olecranon process spur. There is no evidence of elbow joint effusion. IMPRESSION: Large spurring with fracture line. Soft tissue swelling suggestive of olecranon bursitis.
[2021-09-11] MEDS ORDERED: cefTRIAXone IN SWFI 1,000 MG/10 ML SYRINGE IVP STA (15:20)
[2021-09-11] MEDS ORDERED: VANCOMYCIN 1,500 MG in SODIUM CHLORIDE 0.9% 250 ML IVPB STA (15:21)
[2021-09-11] MEDS ORDERED: VANCOMYCIN IV PER PHARMACY 1 EACH MISC MISCELLANE PRN (15:34)
--- NOTE | 2021-09-11 15:35 | ED ---
Upper Extremity HPI - General Chief Complaint: Extremity Injury, Upper Stated Complaint: Right Elbow Injury Time Seen by Provider: 09/11/21 14:57 Source: patient Mode of arrival: ambulatory Limitations: no limitations - History of Present Illness Initial Comments: This is a pleasant 86-year-old male who bumped his right elbow on something abou t one week ago. Patient states he had swelling and pain to the area. Patient states that since then he has had increased swelling to the posterior aspect of the elbow. Patient is on warfarin. Patient denies any other injuries. Patient states the elbow was actually more swollen earlier this morning. It is very red, is concerned about infection. Patient also complaining of fairly significant pain. No bleeding from the sites. No headache, no fever or chills, no changes in vision or hearing, no sore throat or difficulty with speech, no neck pain, no chest pain or shortness of breath, no abdominal pain, no nausea or vomiting, no changes in urination or bowel movements, no numbness or tingling, no skin rashes or lesions. Patient has a history of coronary artery disease, CVA, thyroid disorder, prostate disorder, mitral valve repair, osteoarthritis MD Complaint: Injury to:: left, elbow - Related Data Home Medications Medication Instructions Recorded Confirmed Cholecalciferol [Vitamin D3 (25 2,500 unit PO DAILY 06/24/18 02/08/20 Mcg = 1000 Iu)] Metoprolol Tartrate [Lopressor] 25 mg PO BID 06/24/18 02/08/20 Multivitamin Packet 1 applic PO DAILY 06/24/18 02/08/20 [place] Oil 1200 1,200 mg PO DAILY 06/24/18 02/08/20 Sea Kelp 325 Mcg 325 mcg PO DAILY 06/24/18 02/08/20 Turmeric Root Extract [Turmeric] 500 mg PO BID 06/24/18 02/08/20 Tamsulosin [Flomax] 0.4 mg PO HS 10/28/18 02/08/20 Prevagen 1 tab PO DAILY 02/08/20 02/08/20 Previous Rx's Medication Instructions Recorded Aspirin 325 mg PO DAILY #21 tab 02/10/20 Atorvastatin [Lipitor] 80 mg PO HS #30 tab 02/10/20 Clopidogrel [Plavix] 75 mg PO DAILY #30 tab 02/10/20 Atorvastatin [Lipitor] 20 mg PO HS 30 Days #30 tab 02/11/20 Acetaminophen [Tylenol] 500 mg PO Q4-6H PRN #24 tab 09/11/21 Cephalexin [Keflex] 500 mg PO Q6HR #40 cap 09/11/21 Allergies Allergy/AdvReac Type Severity Reaction Status Date / Time cefuroxime [From Ceftin] AdvReac Severe Diarrhea, Verified 09/11/21 14:10 DEHYDRATION Review of Systems ROS Statement: Those systems with pertinent positive or pertinent negative responses have been documented in the HPI. ROS Other: All systems not noted in ROS Statement are negative. Past Medical History Past Medical History: Coronary Artery Disease (CAD), CVA/TIA, Hearing Disorder / Deafness, Osteoarthritis (OA), Prostate Disorder, Thyroid Disorder Additional Past Medical History / Comment(s): MITRAL VALVE REPAIR AGE 67. LT KNEE AND SHOULDER PROBLEMS/PAIN. 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 SPINAL STENOSIS. BPH. History of Any Multi-Drug Resistant Organisms: None Reported Past Surgical History: Back Surgery, Coronary Bypass/CABG, Heart Catheterization With Stent Additional Past Surgical History / Comment(s): CABG X1 VESSEL, MITRAL VALVE REPAIR. PTCA STENTS X2. RT ROTATOR CUFF REPAIR. ARTHROSCOPIC CEM KNEES. BACK SURG X2. Past Anesthesia/Blood Transfusion Reactions: No Reported Reaction Date of Last Stent Placement:: 2000 Past Psychological History: No Psychological Hx Reported Smoking Status: Never smoker Past Drug Use History: None Reported - Past Family History Mother Family Medical History: No Reported History General Exam - General Exam Comments Initial Comments: Patient does not appear to be systemically ill. No acute distress Limitations: no limitations General appearance: alert, in no apparent distress Head exam: Present: atraumatic, normocephalic, normal inspection Eye exam: Present: normal appearance, PERRL, EOMI. Absent: scleral icterus, conjunctival injection, periorbital swelling ENT exam: Present: normal exam, mucous membranes moist Neck exam: Present: normal inspection. Absent: tenderness, meningismus, lymphadenopathy Respiratory exam: Present: normal lung sounds bilaterally. Absent: respiratory distress, wheezes, rales, rhonchi, stridor Cardiovascular Exam: Present: regular rate, normal rhythm, normal heart sounds. Absent: systolic murmur, diastolic murmur, rubs, gallop, clicks GI/Abdominal exam: Present: soft, normal bowel sounds. Absent: distended, tenderness, guarding, rebound, rigid Extremities exam: Present: tenderness, normal capillary refill. Absent: pedal edema, calf tenderness Left Upper Arm exam: Present: normal inspection. Absent: tenderness Elbow exam: Present: tenderness, swelling, ecchymosis, erythema. Absent: normal inspection, full ROM, crepitus, dislocation Forearm Wrist exam: Present: normal inspection. Absent: tenderness Hand Wrist exam: Present: normal inspection, full ROM. Absent: tenderness Neuro motor exam: Present: wrist extension intact, thumb opposition intact Neurosensory exam: Present: radial nerve intact, ulnar nerve intact, median nerve intact Vascular: Present: normal capillary refill. Absent: vascular compromise, Pallo, pulse deficit radial art Back exam: Present: normal inspection Neurological exam: Present: alert, oriented X3, CN II-XII intact Psychiatric exam: Present: normal affect, normal mood Skin exam: Present: warm, dry, intact, normal color. Absent: rash Course Vital Signs 09/11/21 14:07 Temperature 97.8 F Pulse Rate 88 Respiratory 16 Rate Blood Pressure 180/89 O2 Sat by Pulse 100 Oximetry Medical Decision Making - Medical Decision Making Patient has a SPUR WITH A FRACTURE LINE PUT READ BY RADIOLOGY Patient's lab work actually is essentially normal. White blood count 7400. Patient's bursitis probably indicative of localized infection, possible related to the subsequent contusion. The patient does have a hairline fracture through a bony spur off the olecranon. We'll have him see the orthopedic physician tomorrow morning. He and his are told to call at 8 AM without fail. I'm going to cover the patient with antibiotics as he does have significant erythema overlying the area. No evidence of systemic infection. Patient was told to return to the ER for any signs or symptoms worsen. Told to return immediately if any other problems arise. All questions answered. Treatment plan discussed. Patient in agreement Every effort has been made to ensure accuracy of this dictation. However, due to the limitations of electronic medical records and dictation devices, errors in charting still occur. Patient's orthopedic physician is Dr. Olivera - Lab Data Result diagrams: 09/11/21 15:46 09/11/21 16:28 Lab Results 09/11/21 09/11/21 Range/Units 15:46 16:28 WBC 7.4 (3.8-10.6) k/uL RBC 4.76 (4.30-5.90) m/uL Hgb 14.7 (13.0-17.5) gm/dL Hct 43.6 (39.0-53.0) % MCV 91.5 (80.0-100.0) fL MCH 30.9 (25.0-35.0) pg MCHC 33.7 (31.0-37.0) g/dL RDW 14.1 (11.5-15.5) % Plt Count 219 (150-450) k/uL MPV 7.1 Neutrophils % 67 % Lymphocytes % 21 % Monocytes % 8 % Eosinophils % 2 % Basophils % 0 % Neutrophils # 5.0 (1.3-7.7) k/uL Lymphocytes # 1.5 (1.0-4.8) k/uL Monocytes # 0.6 (0-1.0) k/uL Eosinophils # 0.2 (0-0.7) k/uL Basophils # 0.0 (0-0.2) k/uL Sodium 135 L (137-145) mmol/L Potassium 4.1 (3.5-5.1) mmol/L Chloride 103 (98-107) mmol/L Carbon Dioxide 22 (22-30) mmol/L Anion Gap 10 mmol/L BUN 21 H (9-20) mg/dL Creatinine 0.79 (0.66-1.25) mg/dL Est GFR (CKD-EPI)AfAm >90 (>60 ml/min/1.73 sqM) Est GFR (CKD-EPI)NonAf 83 (>60 ml/min/1.73 sqM) Glucose 105 H (74-99) mg/dL Calcium 9.1 (8.4-10.2) mg/dL C-Reactive Protein 0.7 (<1.0) mg/dL - Radiology Data Radiology results: report reviewed, image reviewed Disposition Clinical Impression: Fracture of olecranon process, right, closed, Olecranon bursitis of right elbow, Hypertension, poor control Narrative: Nondisplaced fracture through a spider off of the olecranon Disposition: HOME SELF-CARE Condition: Stable Instructions (If sedation given, give patient instructions): Elbow Bursitis (ED), Elbow Fracture (ED) Additional Instructions: Use a sling as directed. Follow-up with Dr. Olivera tomorrow morning. Call at 8 AM. Return to the ER immediately if any symptoms worsen in any other problems arise. Is patient prescribed a controlled substance at d/c from ED?: No Referrals: Anand Fortune MD [Primary Care Provider] - 1-2 days Time of Disposition: 17:25
[2021-09-11 16:03] LABS: Basophils % (A) 0 %; Eosinophils # (A) 0.2 k/uL (0-0.7); Eosinophils % (A) 2 %; HCT 43.6 % (39.0-53.0); HGB 14.7 gm/dL (13.0-17.5); Lymphocytes # (A) 1.5 k/uL (1.0-4.8); Lymphocytes % (A) 21 %; MCH 30.9 pg (25.0-35.0); MCHC 33.7 g/dL (31.0-37.0); MCV 91.5 fL (80.0-100.0); Mean Platelet Volume 7.1; Monocytes # (A) 0.6 k/uL (0-1.0); Monocytes % (A) 8 %; Neutrophils % (A) 67 %; Platelet Count 219 k/uL (150-450); RBC 4.76 m/uL (4.30-5.90); RDW 14.1 % (11.5-15.5); WBC 7.4 k/uL (3.8-10.6)
[2021-09-11 17:06] LABS: African American GFR (CKD) >90 (>60 ml/min/1.73 sqM); Anion Gap 10 mmol/L; Blood Urea Nitrogen 21 mg/dL (9-20); C Reactive Protein 0.7 mg/dL (<1.0); Calcium 9.1 mg/dL (8.4-10.2); Carbon Dioxide 22 mmol/L (22-30); Chloride 103 mmol/L (98-107); Glucose 105 mg/dL (74-99); Non-African American GFR(CKD) 83 (>60 ml/min/1.73 sqM); Potassium 4.1 mmol/L (3.5-5.1); Sodium 135 mmol/L (137-145)
[2021-09-11 17:26] LABS: Erythrocyte Sedimentation Rate 13 mm/hr (0-15)
[2021-09-11 17:34] LABS: Prothrombin Time 29.6 sec (9.0-12.0)
[2021-09-11 18:11] VITALS: BP 166/89; PULSE 84
== END 2021-09-11 18:11 | disposition home or self-care (01) ==
LOC: EC 14:05
DX: S52.021A Displaced fracture of olecranon process without intraarticular extension of right ulna, initial encounter for closed fracture (principal); Z86.73 Personal history of transient ischemic attack (TIA), and cerebral infarction without residual deficits; Z88.1 Allergy status to other antibiotic agents; X58.XXXA Exposure to other specified factors, initial encounter
CPT/HCPCS: 36415; 80048; 85652; 85025; 85610; 86140; 87040; 73080; 99283; 96365; J3370; J0696

== ENCOUNTER 2022-08-13 18:30 | Emergency (ER) | payer MEDICARE ==
[2022-08-13 18:39] VITALS: TEMP 97.8
--- NOTE | 2022-08-13 19:12 | ED ---
General Adult HPI - General Chief complaint: Neuro Symptoms/Deficit Stated complaint: blurred vision, memory problems Time Seen by Provider: 08/13/22 19:08 Source: patient, family Mode of arrival: ambulatory Limitations: no limitations - History of Present Illness Initial comments: Patient presents to the ED with his for evaluation. Patient reports waking up this morning with a diffuse headache. Patient also states that he noticed earlier today that the left side of his visual field was "blurry" when he was watching television. Patient also states that he had trouble operating their microwave and turning on his computer today. states that this is very abnormal for the patient, and she is concerned that he could not remember his computer password and could not operate their microwave today. Patient states that he took some Tylenol for his headache, and he states that his headache has pretty much resolved at this time. states that the patient is on Eliquis anticoagulation therapy due to atrial fibrillation. Patient denies trauma or injury, fever or chills, neck pain or stiffness, focal numbness/weakness/neuro deficit, speech difficulty, chest pain, dyspnea, cough or cold symptoms, palpitations, dizziness, abdominal pain, nausea/vomiting/diarrhea, dysuria or urinary symptoms, or any other symptoms or complaints. - Related Data Home Medications Medication Instructions Recorded Confirmed Metoprolol Tartrate [Lopressor] 25 mg PO BID 06/24/18 08/13/22 Tamsulosin [Flomax] 0.4 mg PO DAILY 10/28/18 08/13/22 Apixaban [Eliquis] 5 mg PO DIRECTED 08/13/22 08/13/22 Aspirin EC [Ecotrin Low Dose] 81 mg PO HS 08/13/22 08/13/22 Atorvastatin [Lipitor] 10 mg PO HS 08/13/22 08/13/22 Cholecalciferol [Vitamin D3 (125 125 mcg PO DAILY 08/13/22 08/13/22 Mcg = 5000 Iu)] Multivitamins, Thera [Multivitamin 1 tab PO DAILY 08/13/22 08/13/22 (formulary)] [place]-3 Fatty Acids [[place]-3] 1,000 mg PO HS 08/13/22 08/13/22 Allergies Allergy/AdvReac Type Severity Reaction Status Date / Time cefuroxime [From Ceftin] AdvReac Severe Diarrhea, Verified 08/13/22 19:40 DEHYDRATION Review of Systems ROS Statement: Those systems with pertinent positive or pertinent negative responses have been documented in the HPI. ROS Other: All systems not noted in ROS Statement are negative. Past Medical History Past Medical History: Coronary Artery Disease (CAD), CVA/TIA, Hearing Disorder / Deafness, Osteoarthritis (OA), Prostate Disorder, Thyroid Disorder Additional Past Medical History / Comment(s): MITRAL VALVE REPAIR AGE 67. LT KNEE AND SHOULDER PROBLEMS/PAIN. 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 SPINAL STENOSIS. BPH. History of Any Multi-Drug Resistant Organisms: None Reported Past Surgical History: Back Surgery, Coronary Bypass/CABG, Heart Catheterization With Stent Additional Past Surgical History / Comment(s): CABG X1 VESSEL, MITRAL VALVE REPAIR. PTCA STENTS X2. RT ROTATOR CUFF REPAIR. ARTHROSCOPIC CEM KNEES. BACK SURG X2. Past Anesthesia/Blood Transfusion Reactions: No Reported Reaction Date of Last Stent Placement:: 2000 Past Psychological History: No Psychological Hx Reported Smoking Status: Never smoker Past Drug Use History: None Reported - Past Family History Mother Family Medical History: No Reported History General Exam Limitations: no limitations General appearance: alert, in no apparent distress Head exam: Present: atraumatic, normocephalic Eye exam: Present: normal appearance, PERRL, EOMI ENT exam: Present: mucous membranes moist Neck exam: Absent: tenderness, meningismus Respiratory exam: Present: normal lung sounds bilaterally. Absent: respiratory distress, wheezes, rales, rhonchi, stridor Cardiovascular Exam: Present: regular rate, normal rhythm, normal heart sounds, other (Normal radial pulses bilaterally) GI/Abdominal exam: Present: soft. Absent: distended, tenderness, guarding Extremities exam: Present: full ROM. Absent: tenderness, pedal edema Neurological exam: Present: alert, oriented X3, CN II-XII intact, other (NIH s troke score = 0). Absent: motor sensory deficit Psychiatric exam: Present: normal affect, normal mood Skin exam: Present: warm, dry, intact, normal color Course Vital Signs 08/13/22 08/13/22 18:35 20:44 Temperature 97.8 F Pulse Rate 68 67 Respiratory 18 15 Rate Blood Pressure 166/83 168/77 O2 Sat by Pulse 99 100 Oximetry - Reevaluation(s) Reevaluation #1: 08/13/22 21:00 Patient remains alert and breathing comfortably. Patient continues to be A&O x 4, and he continues to have a normal neurological exam. Patient and are aware of the patient's test results/CT findings. I have explained to them that given we do not have neurosurgical coverage at this hospital, he will need to be transferred to another facility, and they have requested that the patient be transferred to [facility]. 08/13/22 21:13 Case, H&P, test results and ED management thus far were discussed with [facility] ED physician Dr. Lane. He accepts ambulance transfer to the [facility] ED. He has no further recommendations at this time. EKG Findings - EKG Comments: EKG Findings:: ED physician interpretation: Sinus rhythm with first-degree AV block, no ectopy, ventricular rate of 63 bpm, CO interval of 285 ms, normal QRS duration, normal QT interval, moderate voltage criteria for LVH, no ST or T-wave abnormality, normal axis Medical Decision Making - Medical Decision Making Was pt. sent in by a medical professional or institution (, PA, COMMERCIAL INSTRUCTOR SUPERVISOR, urgent care, hospital, or skilled nursing...) When possible be specific @ -[No] Did you speak to anyone other than the patient for history (EMS, parent, family, police, friend...)? What history was obtained from this source @ -Patient's provided history. Did you review nursing and triage notes (agree or disagree)? Why? @ -[I reviewed and agree with nursing and triage notes] Were old charts reviewed (outside hosp., previous admission, EMS record, old EKG, old radiological studies, urgent care reports/EKG's, skilled nursing records)? Report findings @ -[No old charts were reviewed] Differential Diagnosis (chest pain, altered mental status, abdominal pain women, abdominal pain men, vaginal bleeding, weakness, fever, dyspnea, syncope, headache, dizziness, GI bleed, back pain, seizure, CVA, palpatations, mental health)? @ -Headache, migraine, intracranial hemorrhage, CVA, TIA, confusion, dementia, medication reaction, drug/alcohol abuse, encephalopathy EKG interpreted by me (3pts min.). @ -[As above] X-rays interpreted by me (1pt min.). @ -[Negative chest x-ray] CT interpreted by me (1pt min.). @ -No U/S interpreted by me (1pt. min.). @ -[None done] What testing was considered but not performed or refused? (CT, X-rays, U/S, labs)? Why? @ -[None] What meds were considered but not given or refused? Why? @ -[None] Did you discuss the management of the patient with other professionals (pr ofessionals i.e. , PA, COMMERCIAL INSTRUCTOR SUPERVISOR, lab, RT, psych nurse, manager social responsibility, racing secretary and handicapper, teacher, admissions officer, case advocate)? Give summary @ -As above Was smoking cessation discussed for >3mins.? @ -[No] Was critical care preformed (if so, how long)? @ -Yes, 50 minutes Were there social determinants of health that impacted care today? How? (Homelessness, low income, unemployed, alcoholism, drug addiction, transportation, low edu. Level, literacy, decrease access to med. care, care home, rehab)? @ -[No] Was there de-escalation of care discussed even if they declined (Discuss DNR or withdrawal of care, Hospice)? DNR status @ -[No] What co-morbidities impacted this encounter? (DM, HTN, Smoking, COPD, CAD, Cancer, CVA, ARF, Chemo, Hep., AIDS, mental health diagnosis, sleep apnea, morbid obesity)? @ -[Atrial fibrillation on Eliquis anticoagulation] Was patient admitted / discharged? Hospital course, mention meds given and route, prescriptions, significant lab abnormalities, going to OR and other pertinent info. @ -Patient has had a normal/nonfocal neurological exam while in the ED. Patient has been treated with KCentra given he is on Eliquis and has a moderate- sized intraparenchymal head bleed. Patient has also been treated with IV hydralazine for elevated blood pressure. Case was discussed with the [facility] ED physician on duty for ambulance transfer given we do not have neurosurgical coverage in our hospital. He has accepted ambulance transfer to their ED for neurosurgical evaluation. He has no further recommendations at thi s time. Patient and are aware the patient's test results, and they agree with this plan. Undiagnosed new problem with uncertain prognosis? @ -[No] Drug Therapy requiring intensive monitoring for toxicity (Heparin, Nitro, Insulin, Cardizem)? @ -[No] Were any procedures done? @ -[No] Diagnosis/symptom? @ -Intraparenchymal intracranial hemorrhage Acute, or Chronic, or Acute on Chronic? @ -Acute Uncomplicated (without systemic symptoms) or Complicated (systemic symptoms)? @ -[default] Side effects of treatment? @ -[No] Exacerbation, Progression, or Severe Exacerbation? @ -[No] Poses a threat to life or bodily function? How? (Chest pain, USA, AR, pneumonia, PE, COPD, DKA, ARF, appy, cholecystitis, CVA, Diverticulitis, Homicidal, Suicidal, threat to staff... and all critical care pts) @ -[No] - Lab Data Result diagrams: 08/13/22 19:31 08/13/22 19:31 Lab Results 08/13/22 08/13/22 08/13/22 Range/Units 19:31 19:31 19:31 WBC 9.3 (3.8-10.6) k/uL RBC 4.51 (4.30-5.90) m/uL Hgb 13.6 (13.0-17.5) gm/dL Hct 38.8 L (39.0-53.0) % MCV 86.1 (80.0-100.0) fL MCH 30.1 (25.0-35.0) pg MCHC 35.0 (31.0-37.0) g/dL RDW 12.6 (11.5-15.5) % Plt Count 190 (150-450) k/uL MPV 7.3 Neutrophils % 62 % Lymphocytes % 25 % Monocytes % 9 % Eosinophils % 2 % Basophils % 1 % Neutrophils # 5.7 (1.3-7.7) k/uL Lymphocytes # 2.3 (1.0-4.8) k/uL Monocytes # 0.8 (0-1.0) k/uL Eosinophils # 0.2 (0-0.7) k/uL Basophils # 0.1 (0-0.2) k/uL PT 11.6 (9.0-12.0) sec INR 1.1 (<1.2) APTT 29.1 (22.0-30.0) sec Sodium 135 L (137-145) mmol/L Potassium 4.3 (3.5-5.1) mmol/L Chloride 102 (98-107) mmol/L Carbon Dioxide 26 (22-30) mmol/L Anion Gap 7 mmol/L BUN 18 (9-20) mg/dL Creatinine 1.13 (0.66-1.25) mg/dL Est GFR (CKD-EPI)AfAm 69 (>60 ml/min/1.73 sqM) Est GFR (CKD-EPI)NonAf 59 (>60 ml/min/1.73 sqM) Glucose 112 H (74-99) mg/dL Calcium 9.2 (8.4-10.2) mg/dL Total Bilirubin 1.1 (0.2-1.3) mg/dL AST 26 (17-59) U/L ALT 19 (4-49) U/L Alkaline Phosphatase 50 (38-126) U/L Troponin I (0.000-0.034) ng/mL Total Protein 7.0 (6.3-8.2) g/dL Albumin 4.1 (3.5-5.0) g/dL Serum Alcohol <10 mg/dL 08/13/22 Range/Units 19:31 WBC (3.8-10.6) k/uL RBC (4.30-5.90) m/uL Hgb (13.0-17.5) gm/dL Hct (39.0-53.0) % MCV (80.0-100.0) fL MCH (25.0-35.0) pg MCHC (31.0-37.0) g/dL RDW (11.5-15.5) % Plt Count (150-450) k/uL MPV Neutrophils % % Lymphocytes % % Monocytes % % Eosinophils % % Basophils % % Neutrophils # (1.3-7.7) k/uL Lymphocytes # (1.0-4.8) k/uL Monocytes # (0-1.0) k/uL Eosinophils # (0-0.7) k/uL Basophils # (0-0.2) k/uL PT (9.0-12.0) sec INR (<1.2) APTT (22.0-30.0) sec Sodium (137-145) mmol/L Potassium (3.5-5.1) mmol/L Chloride (98-107) mmol/L Carbon Dioxide (22-30) mmol/L Anion Gap mmol/L BUN (9-20) mg/dL Creatinine (0.66-1.25) mg/dL Est GFR (CKD-EPI)AfAm (>60 ml/min/1.73 sqM) Est GFR (CKD-EPI)NonAf (>60 ml/min/1.73 sqM) Glucose (74-99) mg/dL Calcium (8.4-10.2) mg/dL Total Bilirubin (0.2-1.3) mg/dL AST (17-59) U/L ALT (4-49) U/L Alkaline Phosphatase (38-126) U/L Troponin I <0.012 (0.000-0.034) ng/mL Total Protein (6.3-8.2) g/dL Albumin (3.5-5.0) g/dL Serum Alcohol mg/dL - Radiology Data Noncontrast head CT: Moderate size acute intraparenchymal hemorrhage measuring 3.5 cm long axis right parietal occipital region. Chest x-ray: Chronic changes without acute pulmonary process. Critical Care Time Critical Care Time: Yes Total Critical Care Time: 50 Disposition Clinical Impression: Intracranial hemorrhage Disposition: OTHER INSTITUTION NOT DEFINED Condition: Stable Is patient prescribed a controlled substance at d/c from ED?: No Referrals: Anand Fortune MD [Primary Care Provider] - 1-2 days Time of Disposition: 21:13 - Out of Hospital Transfer - Req. Specs Out of Hospital Transfer - Requested Specifics: Other Emergency Center ([facility] ED)
[2022-08-13 19:40] LABS: Basophils # (A) 0.1 k/uL (0-0.2); Basophils % (A) 1 %; Eosinophils # (A) 0.2 k/uL (0-0.7); Eosinophils % (A) 2 %; HCT 38.8 % (39.0-53.0); HGB 13.6 gm/dL (13.0-17.5); Lymphocytes # (A) 2.3 k/uL (1.0-4.8); Lymphocytes % (A) 25 %; MCH 30.1 pg (25.0-35.0); MCV 86.1 fL (80.0-100.0); Mean Platelet Volume 7.3; Monocytes # (A) 0.8 k/uL (0-1.0); Monocytes % (A) 9 %; Neutrophils # (A) 5.7 k/uL (1.3-7.7); Neutrophils % (A) 62 %; Platelet Count 190 k/uL (150-450); RBC 4.51 m/uL (4.30-5.90); RDW 12.6 % (11.5-15.5); WBC 9.3 k/uL (3.8-10.6)
[2022-08-13 19:49] LABS: ALT 19 U/L (4-49); AST 26 U/L (17-59); African American GFR (CKD) 69 (>60 ml/min/1.73 sqM); Albumin 4.1 g/dL (3.5-5.0); Alcohol <10 mg/dL; Alkaline Phosphatase 50 U/L (38-126); Anion Gap 7 mmol/L; Blood Urea Nitrogen 18 mg/dL (9-20); Calcium 9.2 mg/dL (8.4-10.2); Carbon Dioxide 26 mmol/L (22-30); Chloride 102 mmol/L (98-107); Glucose 112 mg/dL (74-99); Non-African American GFR(CKD) 59 (>60 ml/min/1.73 sqM); Potassium 4.3 mmol/L (3.5-5.1); Sodium 135 mmol/L (137-145); Total Bilirubin 1.1 mg/dL (0.2-1.3)
[2022-08-13 19:56] LABS: INR 1.1 (<1.2); Partial Thromboplastin Time 29.1 sec (22.0-30.0); Prothrombin Time 11.6 sec (9.0-12.0)
[2022-08-13] MEDS ORDERED: HUMAN PROTHROMBIN COMPLX 500 UNIT/16 ML VIAL IV ONE (20:30)
--- NOTE | 2022-08-13 20:33 | XR ---
EXAMINATION TYPE: XR chest 2V DATE OF EXAM: 08/13/2022 COMPARISON: Chest x-ray October 28, 2018 HISTORY: Altered mental status and weakness. TECHNIQUE: Frontal and lateral views of the chest are obtained. FINDINGS: There is mild chronic parenchymal change bilaterally redemonstrated without suspicious foc al air space opacity, pleural effusion, or pneumothorax seen. Overlying sternal wires and mediastinal clips are redemonstrated. The cardiac silhouette size is stable and within normal limits. Degenerati ve change bilateral shoulders again seen. IMPRESSION: Chronic changes without acute pulmonary process.
[2022-08-13] MEDS ORDERED: Kcentra PER PHARMACY 1 EACH MISC MISCELLANE STA (20:37)
[2022-08-13 20:44] VITALS: RESP 15
[2022-08-13] MEDS ORDERED: hydrALAZINE HCL 20 MG/ML 1 ML VIAL IVP STA (20:49)
--- NOTE | 2022-08-13 20:52 | CT ---
EXAMINATION TYPE: CT brain wo con DATE OF EXAM: 08/13/2022 HISTORY: Neuro deficit, acute onset, stroke suspected CT DLP: 1127.4 mGycm. Automated Exposure Control for Dose Reduction was Utilized. TECHNIQUE: CT scan of the head is performed without contrast. COMPARISON: CT brain February 08, 2020. FINDINGS: There is acute intraparenchymal hemorrhage right parietal occipital region measuring 3.5 x 3.0 cm axial image 43 x 2.3 cm coronal image 54 consistent with acute hemorrhage. There is mild dif fuse ventricular and sulcal prominence consistent with diffuse age-related cerebral atrophy. There i s old infarct left head of caudate nucleus also involving anterior limb internal capsule axial image 34 which is however new from 2020 study. The globes are intact and the visualized sinuses are clear. There are hearing aids devices bilaterally incidentally noted IMPRESSION: Moderate size acute intraparenchymal hemorrhage measuring 3.5 cm long axis right parietal occipital region. Critical findings communicated to ordering ER physician via telephone at time of dictation
[2022-08-13] MEDS ORDERED: HUMAN PROTHROMBIN COMPLX IV ONE (21:00)
[2022-08-13 21:27] VITALS: BP 124/66; PULSE 82
== END 2022-08-13 21:42 | disposition other institution (70) ==
LOC: EC 18:30
DX: I62.9 Nontraumatic intracranial hemorrhage, unspecified (principal); I25.10 Atherosclerotic heart disease of native coronary artery without angina pectoris; M19.90 Unspecified osteoarthritis, unspecified site; I48.91 Unspecified atrial fibrillation; Z86.73 Personal history of transient ischemic attack (TIA), and cerebral infarction without residual deficits; Z79.1 Long term (current) use of non-steroidal anti-inflammatories (NSAID); Z79.82 Long term (current) use of aspirin; Z88.1 Allergy status to other antibiotic agents; Z79.01 Long term (current) use of anticoagulants
CPT/HCPCS: 93005; 80053; 84484; 85025; 85610; 85730; 71046; 70450; 99291; 96375; 96374; G0480; J0360; J7168; 36415; 80320

== ENCOUNTER → 2023-06-11 | Outpatient (CLI) | payer MEDICARE ==
--- NOTE | 2023-07-27 12:14 | EM ---
EVENT MONITOR This is a 30-day event monitor. INDICATIONS: Aortic insufficiency. FINDINGS: Underlying rhythm is sinus with first-degree AV block. There were episodes of sinus bradycardia, occasional PACs. There was a sinoatrial exit block noted. CONCLUSIONS: 1. Event monitor shows sinus rhythm, first-degree AV block. 2. Sinus bradycardia. 3. PACs. 4. Sinoatrial block. MMODL / IJN: [id number] /
== END | disposition home or self-care (01) ==
LOC: RADECHMAIN 08:07
PROVIDERS: ATTEND Family Medicine
DX: I45.5 Other specified heart block (principal); I35.1 Nonrheumatic aortic (valve) insufficiency; I49.1 Atrial premature depolarization
CPT/HCPCS: 93270

== ENCOUNTER → 2023-06-26 | Outpatient (CLI) | payer MEDICARE | LOC: CPPFTMAIN 14:40 | PROVIDERS: ATTEND Surgery | DX: I35.0 Nonrheumatic aortic (valve) stenosis (principal); I35.1 Nonrheumatic aortic (valve) insufficiency; Z79.01 Long term (current) use of anticoagulants; Z88.8 Allergy status to other drugs, medicaments and biological substances | CPT/HCPCS: 94060; 94726; 94729 ==

== ENCOUNTER → 2024-04-28 | Outpatient (CLI) | payer MEDICARE ==
--- NOTE | 2024-04-28 13:32 | CT ---
EXAMINATION TYPE: CT brain wo con CT DLP: 1029.9 mGycm, Automated exposure control for dose reduction was used. DATE OF EXAM: 04/28/2024 1:24 PM COMPARISON: Prior CT Brain from 08/29/2022, 08/13/2022. CLINICAL INDICATION:Male, 89 years old with history of R42 Dizziness and giddiness, dizziness and gid diness TECHNIQUE: Brain: Multiple axial CT images of the brain were obtained without IV contrast. . Coronal and sagitta l reformats reviewed. FINDINGS: Brain: Extra-axial spaces: No abnormal extra-axial fluid collections. Ventricular system: Ex vacuo dilatation anterior horn of the left lateral ventricle due to adjacent e ncephalomalacia. Cerebral parenchyma: Cerebral atrophy. No acute intraparenchymal hemorrhage or mass effect. Resolutio n pre-CT demonstrated right parieto-occipital region intraparenchymal hemorrhage with encephalomalaci a demonstrated. Remote infarct involving the left head of caudate nucleus with extension into the int ernal capsule with encephalomalacia redemonstrated. The remaining humphries-white junction is well differe ntiated. Scattered hypoattenuating areas are seen within the periventricular white matter. Cerebellum: Unremarkable. Mass effect: No evidence of midline shift. Intracranial vasculature: Atherosclerotic calcifications of the intracranial vessels. Soft tissues: Normal. Calvarium/osseous structures: No depressed skull fracture. Paranasal sinuses and mastoid air cells: Clear. Bilateral hearing aid devices incidentally noted. Visualized orbits: Orbital contents are intact. IMPRESSION: 1. No acute intracranial process. 2. Resolution of previously demonstrated right parietal occipital region intraparenchymal hemorrhage with encephalomalacia now demonstrated. 3. Remote lacunar injury involving the left caudate head nucleus and internal capsule. 4. Nonspecific white matter changes likely related to chronic small vessel ischemic disease. [facility], , 04/28/2024 1:29 PM
== END | disposition home or self-care (01) ==
LOC: RADCTMAIN 12:51
PROVIDERS: ATTEND Family Medicine
DX: R42 Dizziness and giddiness
CPT/HCPCS: 70450

== ENCOUNTER → 2024-05-31 | Outpatient (CLI) | payer MEDICARE ==
--- NOTE | 2024-05-31 12:29 | MR ---
EXAMINATION TYPE: MR angio head wo con DATE OF EXAM: 05/31/2024 10:32 AM COMPARISON: None. CLINICAL INDICATION: Male, 89 years old with history of Z86.73 PERSONAL HISTORY OF TIA, Dizziness, hi story of right occipital ICH, carcinoma or AVM. TECHNIQUE: Multiplanar multiecho imaging on a 3.0 Sallie magnet is performed through the [place]. 3-D [id number] imaging is performed. Source images are reviewed on the computer in the axi al plane. Reconstructed images rotating on the computer are reviewed. IV Contrast: mL (None, if empty) FINDINGS: The internal carotid arteries bifurcate normally into A1 and M1 segments. The A2 segments are normal. Middle cerebral artery branches are normal. Posterior communicating arteries as visualiz ed appear normal. Left vertebral artery is dominant. Anterior communicating artery is patent. The right posterior communicating artery is small but patent. The left posterior communicating artery is small but patent. Vertebrobasilar arteries within the [id number] are normal. Posterior cerebral vasculature is norm al. No suspicious aneurysm or aneurysmal dilatation is evident. No obstructions are identified. No significant flow-limiting stenosis is evident. There may be some vascular structures within the hypointense area of the right occipital lobe. IMPRESSION: 1. NORMAL MRA [place]. [facility], , 05/31/2024 12:27 PM
--- NOTE | 2024-05-31 12:38 | MR ---
EXAMINATION TYPE: MR brain wo/w con DATE OF EXAM: 05/31/2024 10:54 AM COMPARISON: CT brain 04/28/2024 CLINICAL INDICATION: Male, 89 years old with history of Z86.73 PERSONAL HISTORY OF TIA, Dizziness, hi story of right occipital ICH, carcinoma or AVM. TECHNIQUE: Multiplanar, multiecho imaging on a 3.0 Sallie magnet is performed through the brain. Stud y is performed within 24 hours of arrival to the hospital.Multiplanar, multiecho imaging on a 3.0 Shanna la magnet is performed through the knee. IV Contrast: 7.5 mL Gadavist (None, if empty) FINDINGS: The craniovertebral junction is normal. The pituitary is normal. Diffusion-weighted imaging is performed. No abnormal hyperintensity is present to suggest an acute i ntracranial infarct or acute ischemic change. There is a hyperintense area within the left basal ganglia extending towards the caudate head. Some e x vacuo effects on the left lateral ventricle anteriorly. Prior lacunar infarct is likely. Progress t here is mixed signal through the right occipital lobe. Some vascular flow voids appear to be present. There is hyperintense white matter with a normal-appearing gyri. Some intense hypointensity may be o n gradient imaging. Findings appear suggestive for vascular all formation. AVM is favored over venous angioma. At the area of prior lacunar infarct similar hypointensity and apparent vascular flow voids are present. A second AVM may be present. Some minimal contrast medium post contrast imaging, series 802 image 15. An additional enhancement va scular structure may be within the posterior left basal ganglion region, series 802 image 18 Ventricles and sulci are appropriate for the patient age. Some fluid is within the mastoid air cells. Bilateral mastoiditis should be considered. IMPRESSION: 1. 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 Differential diagnosis could include venous angiomas prior infarcts. [facility], , 05/31/2024 12:35 PM
== END | disposition home or self-care (01) ==
LOC: RADMRIMAIN 09:49
PROVIDERS: ATTEND Psychiatry & Neurology Neurology
DX: R42 Dizziness and giddiness (principal); Z86.73 Personal history of transient ischemic attack (TIA), and cerebral infarction without residual deficits
CPT/HCPCS: 70544; 70553; A9585